=== PATIENT | female | born 1930 | race Caucasian/White ===

== ENCOUNTER 2016-10-12 06:49 | Inpatient (IN) | payer MEDICARE ==
[2016-10-12] VITALS (10 sets, daily range): BP systolic 99–212; BP diastolic 57–83; PULSE 80–121; RESP 15–32; O2SAT 89–96
[~2016-10-12] VITALS: Ht 165.1 cm; Wt 90.1 kg
[~2016-10-12 06:49] MED LIST: ASPI-973 PO; CALC600T12 PO; CHOL400T PO; CYAN500 PO; METF-778 PO; TRHC5025 PO; [UNRECOGNIZED DRUG - OTHER] PO
--- NOTE | 2016-10-12 06:55 | ED.REPORT ---
HPI-Dyspnea / Wheezing Date of Service Oct 12, 2016 ED Provider: Temo Sanchez MD Patient is an 86 year old female without a cardiac history who presents to the ED via EMS complaining of SOB onset yesterday. She claims that she gets episodes of SOB every so often with the last episode being 3 mo ago. She has never been intubated for these symptoms. She had a nebulizer treatment at the onset of her symptoms but symptoms have returned. She denies cough, fever, chest pain, or any other symptoms. She is not on oxygen at home. She is no longer on hormone therapy. Nursing Notes Stated Complaint: SOB Nursing Notes Reviewed: Yes Allergies: Coded Allergies: iodine (Verified Allergy, Unknown, 10/12/16) Scheduled ([pyredestagmo]) 600 MG PO QID Aspirin (Aspirin) 81 Mg Tablet 81 MG PO DAILY Calcium Carbonate (Calcium) 600 Mg Tablet 600 MG PO DAILY Cholecalciferol (Vitamin D3) (Vitamin D3) 400 Unit Tablet 400 UNIT PO DAILY Cyanocobalamin (Vitamin B12) 500 Mcg Tablet 500 MCG PO DAILY Metformin HCl (Metformin HCl ER) 1,000 Mg [id number] 1,000 MG PO DAILY Triamterene/HCTZ 50-25 mg (Triamterene/HCTZ 50-25 mg) 1 Each Capsule 1 CAPSULE PO DAILY General Time Seen by MD: 06:44 Chief Complaint Shortness of breath Hx Obtained From: Patient Arrived By: Ambulance Sudden in Onset?: Yes Onset Occurred: Yesterday Similar Sx Previous: Yes Past Medical History Past Medical History Colon and breast cancer myasthenia gravis Reports: Diabetes mellitus (Diet controlled ), Hypertension Past Surgical History colectomy mastectomy Smoking History Unknown if Ever Smoker Review of Systems Constitutional: Denies: Fever Respiratory: Reports: Shortness of breath, Denies: Non-productive cough Cardiovascular: Denies: Chest pain Complete sys rev & neg: except as marked. Physical Exam Initial Vital Signs Vital Signs (First) Date Time Temp Pulse Resp B/P Pulse Ox O2 Delivery O2 Flow Rate FiO2 10/12/16 06:56 36.7 121 32 118/83 89 Room Air 10/12/16 07:59 2 Initial VS: Reviewed Head / Eyes: Atraumatic, Normocephalic Abdomen / GI: Soft, Non-tender Skin: Warm, Dry Neurologic: Alert, Oriented, Nonfocal Psychiatric: Mood/affect normal, Behavior normal, Normal thought content General/Constitutional: Awake, Alert, Well developed Neck: Full range of motion Resp Distress / Stridor: Positive: Stridor mild speaking in shortened sentences at times and complete sentences at other times mild increased work of breathing coarse breath sounds bilaterally Heart Rate / Rhythm: Positive: Tachycardia Interpretation & Diagnostics Lab Results Interpretation Result Diagram: 10/12/16 0700 10/12/16 0700 Test 10/12/16 07:00 10/12/16 09:02 White Blood Count 10.9th/mm3 (3.8-10.1) Red Blood Count 4.37mil/mm3 (3.90-5.20) Hemoglobin 12.4g/dL (12.0-15.6) Hematocrit 39.2% (35.0-46.0) Mean Corpuscular Volume 89.7fL (81-100) Mean Corpuscular Hemoglobin 28.4pg (27.0-35.0) Mean Corpuscular Hemoglobin Concent 31.6% (32.0-37.0) Red Cell Distribution Width 13.1% (12.3-15.4) Platelet Count 253bil/L (150-400) Neutrophils (%) (Auto) 73.3% (40-74) Lymphocytes (%) (Auto) 17.1% (14-46) Monocytes (%) (Auto) 7.3% (4-12) Eosinophils (%) (Auto) 1.7% (0-5) Basophils (%) (Auto) 0.4% (0-3) Sodium Level 142mEq/L (134-144) Potassium Level 3.9mEq/L (3.5-5.2) Chloride Level 101mEq/L (97-108) Carbon Dioxide Level 23mmol/L (18-29) Blood Urea Nitrogen 15mg/dL (8-27) Creatinine 0.82mg/dL (0.57-1.00) Estimat Glomerular Filtration Rate 95mL/min (>59) Glucose Level 203mg/dL (60-99) Calcium Level 9.2mg/dL (8.5-10.1) Total Bilirubin 0.6mg/dL (0.0-1.2) Aspartate Amino Transf (AST/SGOT) 52U/L (0-50) Alanine Aminotransferase (ALT/SGPT) 38U/L (0-32) Alkaline Phosphatase 65U/L (25-165) Troponin T 0.572ug/L (0.0-0.011) Pro-B-Type Natriuretic Peptide 1986pg/mL (0-738) Total Protein 6.5g/dL (6.4-8.4) Albumin 4.0g/dL (3.4-5.0) Hold Dean Top Tube Received (Received) Activated Partial Thromboplast Time 24.3sec (22.8-33.0) D-Dimer 0.6mg/L (<0.50) ECG Interpretation ECG Interpretation: Sinus tachycardia rate [address], T changes Time: 07:09 Interpreted by: ED physician X-Ray Chest Interpretation Chest Xray Interpretation: IMPRESSION: 1. Mild CHF versus atypical pneumonia. 2. Hiatal hernia. Dictated by: Desmond Ochoa M.D. on 10/12/2016 at 7:44 Approved by: Desmond Ochoa M.D. on 10/12/2016 at 7:44 View: Portable, 1 view Interpretation / Wet Read by: Interpret - Radiologist Re-Eval/Medical Decision Med Decision/Clinical Course 86-year-old female history of colon cancer status post resection, breast cancer status post resection and hormone therapy not on chemotherapy, myasthenia gravis presenting with shortness of breath 1 day and chest pain last night. She reports right-sided chest pain last night. It has resolved. Also with shortness of breath. Oxygen is 89% on arrival. It improved to mid 90s on nebulizers. On arrival she was stridorous and with moderate work of breathing. Her labs were remarkable for troponin of 0.5 with no baseline. Her d-dimer is 6. Sinus tachycardia on EKG. She was given pyridostigmine and steroids and her shortness of breath improved significantly and her stridor and work of breathing normalized. I discussed with cardiology who recommended ruling out PE which we are in the process of doing an recommended heparin drip and trending troponins. Unable to perform CT [place] chest to rule out PE given iodine allergy therefore VQ scan is pending. X-ray showed mild CHF versus atypical pneumonia. I discussed with hospitalist who requested azithromycin. Blood cultures are sent. Patient will be admitted for possible N STEMI, heparin drip, PE workup. Multiple attempts to contact Dr. Morrow were made without success. Re-Evaluation/Progress : Time of Eval: 08:47 )( Re-Eval Resp / Chest: Breath sounds normal Re-Evaluation/Progress Note: Rechecked patient. Discussed plan for admission. Patient understands and agrees with plan. All questions addressed at this time. Patient reports that she may have had some R side chest pain last night. Stridor has resolved. Consultation #1: Referral / Consult Name: Louann Jimenez MD Call Returned at: 07:08 Retail Financial Analyst: Referred to other consult Note: Discussed patient's case with oncologist. Suggests discussing case with neurology. Consultation #2: Referral / Consult Name: Leena Grant MD Consulted With: Cardiology Call Returned at: 08:54 Retail Financial Analyst: Agrees with eval, Agrees with plan Note: Discussed patient's case. Suggests Heparin drip and PE rule out. Consultation #3: Referral / Consult Name: Tiffanie Smith DO Consulted With: Hospitalist Call Returned at: 10:15 Retail Financial Analyst: Will see patient, Agrees with eval, Agrees with plan, Accepts admit Note: Discussed patient's case. Suggests Azithromycin. Accepts admit. Counseled Regarding: Diagnosis, Lab results, Need for admission Discharge & Departure Impression: Primary Impression: NSTEMI (non-ST elevated myocardial infarction) Additional Impression: SOB (shortness of breath) Disposition: ADMITTED TO HOSPITAL Referrals: Arielle Berger (PCP) Crit Care Except Billable Proc Time Spent: 75-104 minutes Services Performed: Patient management by me, Time spent at bedside, Reviewing test results, Reviewing imaging, Discussing patient care, Documentation in record, Time with fam/surrogate Scribe Attestation Portions of this note were transcribed by Paulina Canseco. I, Dr. Sanchez personally performed the history, physical exam and medical decision-making; I reviewed and confirmed the accuracy of the information in the transcribed note. Signed by: Paulina Canseco 10/12/16, 1022 copies to: Arielle Berger Ben M MD Oct 12, 2016 06:55 PAULINA CANSECO Oct 12, 2016 07:11
[2016-10-12] MEDS ORDERED: Albuterol 2.5 mg/3 mL Inhalation Solution NEB ONE (07:15)
[2016-10-12] MEDS ORDERED: 0.9% Sodium Chloride 500 ML IV ONE (07:20)
[2016-10-12 07:44] LABS: BASOPHILS % (AUTO) 0.4 % (0-3); EOSINOPHILS % (AUTO) 1.7 % (0-5); MONOCYTES % (AUTO) 7.3 % (4-12); Mean Corpuscular Hemoglobin 28.4 pg (27.0-35.0); Mean Corpuscular Volume 89.7 fL (81-100); NEUTROPHILS % (AUTO) 73.3 % (40-74); Platelet Count 253 bil/L (150-400)
--- NOTE | 2016-10-12 07:50 | DRSVH ---
PROCEDURE: X-RAY CHEST ONE VIEW, PORTABLE ([id number]) INDICATIONS: dyspnea TECHNIQUE: One view of the chest was acquired. COMPARISON: [facility], CR, XR CHEST 2V AP/PA AND LAT, 09/09/2016, 6:39 PM. FINDINGS: Surgical changes and devices: None. Lungs and pleura: No pleural effusions or pneumothorax. Mild basilar predominant interstitial pulmon claudia opacity. Mediastinum: Moderate hiatal hernia. Mediastinal contours otherwise appear normal. Heart size is no rmal. Bones and chest wall: No suspicious bony lesions. Overlying soft tissues appear unremarkable. IMPRESSION: 1. Mild CHF versus atypical pneumonia. 2. Hiatal hernia. Dictated by: Desmond Ochoa M.D. on 10/12/2016 at 7:44 Approved by: Desmond Ochoa M.D. on 10/12/2016 at 7:44
[2016-10-12 07:59] LABS: TROPONIN T 0.572 ug/L (0.0-0.011)
[2016-10-12] MEDS ORDERED: MethylprednisoLONE Sodium Succinate 62.5 mg/mL 2 mL Inj IVPUSH ONE (08:15)
[2016-10-12] MEDS ORDERED: Heparin 25K Unit/500mL 0.45 NS 25,000 UNIT in IV Premix 1 EACH IV ONE (09:00)
[2016-10-12] MEDS ORDERED: Heparin 5,000 Unit/mL Inj IVPUSH ONE (09:00)
[2016-10-12] MEDS ORDERED: Alum-Mag Hydrox-Simeth 30 mL Suspension PO PRN ×2 (10:25→14:50)
[2016-10-12] MEDS ORDERED: Ondansetron 2 mg/mL 2 mL Inj IVPUSH PRN ×2 (10:25→14:50)
[2016-10-12] MEDS ORDERED: Azithromycin Inj 500 MG in Dextrose 5% 250 ML IV ONE (10:25)
--- NOTE | 2016-10-12 11:01 | DRSVH ---
PROCEDURE: X-RAY CHEST ONE VIEW ([id number]) INDICATIONS: chest pain V/Q Scan pending TECHNIQUE: One lateral view of the chest was acquired. COMPARISON: [facility], CR, XR CHEST 1VW (PORTABLE), 10/12/2016, 7:10. FINDINGS: Surgical changes and devices: None. Lungs and pleura: No pleural effusions or pneumothorax. Mild patchy basilar atelectasis versus pneum onia. Mediastinum: Mediastinal contours appear normal. Heart size is normal. Bones and chest wall: No suspicious bony lesions. Overlying soft tissues appear unremarkable. IMPRESSION: Mild patchy basilar atelectasis versus pneumonia. Dictated by: Desmond Ochoa M.D. on 10/12/2016 at 10:54 Approved by: Desmond Ochoa M.D. on 10/12/2016 at 10:55
--- NOTE | 2016-10-12 13:25 | NUR ---
Admit [facility] rm [id number] from ED Pt admitted on stretcher at 1230, denies pain, daughter present at bedside. Pt oriented to room and facility, all questions answered. Primary RN present in room when pt c/o SOB followed by stridor lasting several minutes. Verbal orders recd for DUONEB. RT called. Symptoms resolved prior to tx. Lots of reassurance provided, pt placed on oxygen via NC for comfort. IV patent-abx infusing from ED. VSS. Will continue to monitor.
[2016-10-12] MEDS ORDERED: Polyethylene Glycol (PEG) 17 Gm Powder PO PRN (14:50)
--- NOTE | 2016-10-12 14:53 | DRSVH ---
PROCEDURE: NM LUNG VQ RADIOPHARMACEUTICAL: 28.9 mCi Tc-99m DTPA aerosol by inhalation and 5.4 mCi Tc-99m MAA intravenously. INDICATIONS: chest pain elevated ddimer TECHNIQUE: Ventilation images were obtained first with Tc-99m DTPA aerosol. Subsequently, perfusion images were acquired after intravenous injection of Tc-99m MAA. Anterior, posterior, SOMMER, MONTSERRATIAN, RPO, LPO, left and right lateral views were obtained. COMPARISON: [facility], CR, XR CHEST 1VW (PORTABLE), 10/12/2016, 7:10. [facility], CR, XR CHEST 1VW, 10/12/2016, 10:40. FINDINGS: Moderate-sized matched defect within the left mid lung anteriorly. Moderate to large matche d defect within the right lower lung and mid lung anteriorly. Small matched defect within the right a nterior lung inferiorly. IMPRESSION: No ventilation/perfusion mismatches to definitively indicate pulmonary embolus. Multiple matched defects are present. Findings correspond to low probability for pulmonary embolus. Dictated by: Desmond Ochoa M.D. on 10/12/2016 at 14:44 Approved by: Desmond Ochoa M.D. on 10/12/2016 at 14:46
[2016-10-12] MEDS: Heparin 5,000 Unit/mL Inj IVPUSH PRN (15:58)
[2016-10-12] MEDS: Heparin 25K Unit/500mL 0.45 NS 25,000 UNIT in IV Premix 1 EACH IV SCH (15:59)
[2016-10-12] MEDS ORDERED: Glucose 40% Oral Gel 15 Gm Tube PO PRN (17:40)
--- NOTE | 2016-10-12 18:48 | PCM.HPMED ---
Subjective Date of Service Oct 12, 2016 Primary Provider: Admitting Physician: Tiffanie Smith DO Primary Care Physician: Arielle Berger Attending Physician: Tiffanie Smith DO Admit Status: From the Emergency Department Chief Complaint: Shortness of breath History of Present Illness: This is a very pleasant 86-year-old female without cardiac history who presents to the [facility] emergency department via EMS complaining of shortness of breath that started yesterday. She claims that she had 3 hospitalizations within the last 6 months due to shortness of breath. Every time to workup was negative to find the cause of her shortness of breath. She states she felt somewhat short of breath last night before she went to bed. She also endorses intermittent right-sided chest pain last night. She woke up this morning with a repeated episode of shortness of breath. She denies cough, fever, chest pain, nausea, vomiting, dysuria, chills, fever, weakness. She is not on oxygen at home. She does not have history of asthma, COPD, and she is not a smoker. As of note, patient has a history of myasthenia gravis, diabetes and hypertension. In the emergency department her temperature was 36.7, pulse 121, respirations 32 , blood pressure 118/83, pulse ox 89 room air. Her white blood count was noted to be 10.9, blood glucose of 203, troponin of 0.572, proBNP 1986, AST 52, ALT 39 , her d-dimer is 6. She was given pyridostigmine and steroids and her shortness of breath improved significantly. Review of Systems: A comprehensive review of systems was conducted with the patient and found to be negative except as above in history of present illness. Allergies Coded Allergies: iodine (Verified Allergy, Unknown, 10/12/16) Home Medications Aspirin Calcium carbonate Vitamin D3 Vitamin B12 Metformin Triamterene/HCTZ PMH Myasthenia gravis Hypertension Diabetes Colon cancer Breast cancer Surgical History Colectomy Mastectomy Family History Mother: diabetes Father: Coronary artery disease Sister: Coronary artery disease, OR Social History Hx Alcohol Use: No Hx Substance Use: No Hx Tobacco Use: No Smoking Status: Unknown if Ever Smoker Living Arrangement: with Family Exam Vital Signs Vital Sign - Last Date Time Temp Pulse Resp B/P Pulse Ox O2 Delivery O2 Flow Rate FiO2 10/12/16 14:54 36.7 93 20 117/77 93 Nasal Cannula 2.00 Exam General: Pleasant, elderly female in no acute distress, alert and oriented 3 HEENT: NCAT, PEERL, anicteric sclera, mucous membranes moist Neck: Supple, no lymphadenopathy, no JVD, no bruit Cardiovascular: Regular rate and rhythm, no murmur appreciated, no rubs or gallops Pulmonary: Mild expiratory wheezing posteriorly bilaterally, no crackles or rhonchi. Reduced respiratory effort with no use of accessory muscles. Abdomen: Bowel tones present. Soft, nontender, nondistended. Extremities: No clubbing, cyanosis, edema, appreciated. Skin: Normal temperature, turgor, and texture; no rash, ulcers, or subcutaneous nodules appreciated. Neuro: Grossly intact Lab and Diagnostics Result Diagram: 10/12/16 0700 10/12/16 0700 Microbiology Blood culture pending X-Rays, CTs and MRIs PROCEDURE: X-RAY CHEST ONE VIEW, PORTABLE ([id number]) IMPRESSION: 1. Mild CHF versus atypical pneumonia. 2. Hiatal hernia. Dictated by: Desmond Ochoa M.D. on 10/12/2016 at 7:44 Approved by: Desmond Ochoa M.D. on 10/12/2016 at 7:44 PROCEDURE: NM LUNG VQ IMPRESSION: No ventilation/perfusion mismatches to definitively indicate pulmonary embolus. Multiple matched defects are present. Findings correspond to low probability for pulmonary embolus. Dictated by: Desmond Ochoa M.D. on 10/12/2016 at 14:44 Approved by: Desmond Ochoa M.D. on 10/12/2016 at 14:46 PROCEDURE: X-RAY CHEST ONE VIEW ([id number]) IMPRESSION: Mild patchy basilar atelectasis versus pneumonia. Dictated by: Desmond Ochoa M.D. on 10/12/2016 at 10:54 Approved by: Desmond Ochoa M.D. on 10/12/2016 at 10:55 12-lead ECG Sinus tachycardia rate 112, PVCs, no ST, T changes Time 7:09, interpreted by ED physician Assessment & Plan Patient is an 86-year-old female with history of myasthenia gravis, hypertension , diabetes, colon and breast cancer, who presented to [facility] emergency department complaining of shortness of breath. Patient admitted for possible NSTEMI, PE rule out. Hospital day #1. Elevated troponin of unknown significance, present on admission, active Patient presented with episode of shortness of breath, and right-sided chest pain last night. No cardiac history. Initial troponin 0.572, proBNP 1986. EKG in the emergency department shows sinus tachycardia with PVCs, no ST, T changes. Dr. Richardson, cardiology has been consulted. Possible NSTEMI -Heparin drip -Serial troponin -Aspirin 81 mg -Nitroglycerin PRN chest pain -O2 supplementation PRN -Lipid panel -ECHO in the morning Myasthenia gravis -60 mg of pyridostigmine and given in the ED patient seemed to respond well -125 mg of Solu-Medrol given in the ED -We will continue to monitor for further myasthenia gravis episodes and treat as necessary Acute respiratory failure, present on admission, resolving Patient bowls oximetry 89% on room air on admission, respirations 82, pulse 121 , patient with increased work of breathing and stridor.Patient's symptoms have much improved upon administration steroids and pyridostigmine in ER. Given patient's D-dimer of 6 there was a concern for possible PE which has been allowed to visit the Q scan. -Continue supplemental O2 PRN -DuoNeb q6h PRN -Continue to monitor Mild leukocytosis, present on admission, active -White blood count of 10.9 on admission -No identifiable source of infection as of yet, chest x-ray is suggestive of an atypical pneumonia -1 dose of azithromycin given in ER -Procalcitonin, UA, Resp.viral PCR-pending -Continue azithromycin at this time -NS IV 80 mls/hr Diabetes mellitus type II, chronic, patient stable -Unclear baseline, hemoglobin A1c pending -Follow blood sugars -Low-dose correctional scale insulin -Continue carbohydrate consistent diet Diet: Heart healthy/diabetic DVT prophylaxis: Currently on heparin drip Disposition: Patient will most likely stay greater than 2 minutes VTE Prophylaxis: Other (Heparin ggt) VTE Mechanical Devices: Venous Foot Pump Resuscitation Status: CPR: Attempt Resuscitation Attending Statement The patient was seen and examined together with Dr. Nolasco on 10/12/16 and I have added additional information to the note above. Eliana Nolasco DO Oct 12, 2016 17:35 Tiffanie Smith DO Oct 13, 2016 15:21
[2016-10-12] MEDS: 0.9% Sodium Chloride 1,000 ML IV SCH (19:47)
[2016-10-12] MEDS: Insulin LISPRO 300 Unit/3 mL Inj SUBQ SCH (20:00)
[2016-10-13] VITALS (17 sets, daily range): BP systolic 106–178; BP diastolic 63–111; PULSE 56–142; RESP 17–30; O2SAT 80–99
[2016-10-13] MEDS: Albuterol-Ipratropium 3 mL Inhalation Solution NEB PRN ×2 (01:29→07:58)
[2016-10-13 07:14] LABS: BASOPHILS % (AUTO) 0.1 % (0-3); EOSINOPHILS % (AUTO) 0.4 % (0-5); MONOCYTES % (AUTO) 8.4 % (4-12); Mean Corpuscular Hemoglobin 28.1 pg (27.0-35.0); Mean Corpuscular Volume 89.8 fL (81-100); NEUTROPHILS % (AUTO) 72.8 % (40-74); Platelet Count 225 bil/L (150-400)
[2016-10-13] MEDS: 0.9% Sodium Chloride 1,000 ML IV SCH ×2 (07:20→08:32)
[2016-10-13] MEDS: Insulin LISPRO 300 Unit/3 mL Inj SUBQ SCH ×4 (08:00→22:41)
[2016-10-13 08:01] LABS: TROPONIN T 0.375 ug/L (0.0-0.011)
[2016-10-13 08:04] LABS: Magnesium 1.8 mg/dL (1.6-2.6)
[2016-10-13] MEDS: Azithromycin Inj 500 MG in Dextrose 5% w/Vial Mate 250 ML IV SCH (08:26)
[2016-10-13] MEDS ORDERED: predniSONE 20 mg Tablet PO ONE ×2 (08:35→20:00)
[2016-10-13] MEDS ORDERED: PYRIDOSTIGMINE BROMIDE 5 MG/ML IV ONE (08:45)
[2016-10-13] MEDS ORDERED: MethylprednisoLONE Sodium Succinate 62.5 mg/mL 2 mL Inj IVPUSH ONE (08:48)
[2016-10-13] MEDS ORDERED: Neostigmine 1 mg/mL 10 mL Inj IV ONE ×2 (09:05→10:40)
--- NOTE | 2016-10-13 09:13 | ABG ---
DateTimeAnalyzed 09:08:00 -_ pH ____7.328 - 7.350 7.450 pCO2 ___46.4__ -mmHg 35.0 45.0 pO2 ___83.2__ -mmHg 69.0 116 HCO3- ___23.7__ -mmol/L 22.0 26.0 ABE ___-1.9__ -mmol/L -2.0 2.0 tHb ___12.4__ -g/dL O2Hb ___94.1__ -% COHb ____0.8__ -% MetHb ____1.1__ -% sO2 ___95.9__ -% FIO2 ___21.0__ -% Drawn By MT - Date/Time Notified____ 09:13:00 -_ Oxygen Device 1 SIMP MASK - Notified By MT - Notified Whom ____Barns - B 745 -mmHg tO2 ___16.4__ -Vol% Mich test N/A -
--- NOTE | 2016-10-13 09:24 | NUR ---
Rapid response @ 0856 Primary RN in pts room @ 0840 as pt c/o difficulty breathing followed by what sounded like stridor/groaning-air hunger. Second episode since 0730 this AM. 1st episode was short, RT was called, Albuterol administered, pt stated to have felt better. Pt was placed on 2L oxygen via NC. called to bedside. STAT medication orders. STAT EKG ordered and ABGs. IV solumedrol administered at 0856 and Neostigmine at 0907. See separate report for VS. Family arrived at 0920, MD updated and answered questions. Pt being transferred to [facility] RM 2024, report called to receiving RN Alena Nunes @ 0925 Addendum: 10/13/16 at 1044 by BUD WILSON RN Pt transferred at 1030. Pt recd by unit charge nurse. finishing technician notified.
--- NOTE | 2016-10-13 10:49 | NUR ---
Arrives to room 2024 at 1035. Initially respirations are easy and unlabored in the low 30's with saturations 96% on 7L OM. Over a period of less than five minutes respirations become labored with coarse upper airway stridor, saturations fall to 86% despite increase in O2 to 15L and then full flush. MD alerted with both Dr Gamble and Dr Smith responding. Neostigmine 1mg administered as ordered with resolution of symptoms. Family at bedside and updated by physicians. Pt resting comfortably, RR 24, O2 saturations 96% on NRB 15L.
[2016-10-13] MEDS: Heparin 25K Unit/500mL 0.45 NS 25,000 UNIT in IV Premix 1 EACH IV SCH (11:16)
[2016-10-13] MEDS: Heparin 5,000 Unit/mL Inj IVPUSH PRN (11:17)
[2016-10-13] MEDS: Privigen 10% 10 Gm/100 mL, 20 Gm/200 mL IV SCH ×2 (11:59)
[2016-10-13] MEDS: Neostigmine 1 mg/mL 10 mL Inj IV SCH ×4 (13:24→22:05)
--- NOTE | 2016-10-13 15:16 | PCM.PNMED ---
Subjective Date of Service Oct 13, 2016 Subjective Patient was seen and examined this morning at bedside. The nurse reported that the patient was having stridor and requested that I go into the patient. Upon presentation to the room the patient was tachypneic and mildly diaphoretic. Oxygen was increased which seemed to help the patient mildly. The patient then started to have stridor and became more anxious and diaphoretic, the patient's blood pressure increased, and her oxygen needs also increased. Respiratory was in the room with myself and the nurse in a rapid response was called. The patient stridor and decompensation seemed to be more related to myasthenia gravis crisis. On 125 mg of Solu-Medrol was given once and 0.5 mg of neostigmine was also given. Pyridostigmine was the drug of choice however since we do not carry that in IV form neostigmine at 0.5 mg was a comparable dose. Stat CBC CMP and troponin were drawn. The patient's family was called and made aware of the situation and they came in immediately. Upon arrival of the patient did look in some distress however the neostigmine was given shortly prior to their arrival and the patient slowly started to recover and responded well to the neostigmine. It was decided that the patient should be transferred down to [facility] for closer monitoring. The patient soon started to have less agonal breathing, her stridor resolved, she was able to speak in full sentences, and the strength in her voice and returned. The patient was then transferred down to [facility] and 0.5 neostigmine every 3 hours was to continue. Shortly after the transfer to [facility] the patient had a 2nd rapid response called. The patient was once again started having stridor and agonal breathing. 1 mg of neostigmine was given and the patient then responded. The 0.5 neostigmine every 3 hours we will continue however it was decided with the myself and Dr. Gamble (who is taking over her care now that she is in on [facility]) that IVIG infusion may be beneficial for the patient at this time. The patient is currently in stable condition. Exam Vital Signs Vital Sign - Last Date Time Temp Pulse Resp B/P Pulse Ox O2 Delivery O2 Flow Rate FiO2 10/13/16 10:21 103 10/13/16 09:59 28 155/81 92 OxyMask 7.00 10/13/16 04:50 36.6 Intake and Output 10/12/16 10/12/16 10/13/16 Cumulative From/Thru 15:00 23:00 07:00 10/12/16 06:56 - 10/13/16 05:02 Intake Total 750 ml 1531 ml 2281 ml Output Total 300 ml 300 ml Balance 750 ml 1231 ml 1981 ml Intake Oral 1136 ml 1136 ml IV Total 750 ml 395 ml 1145 ml Output Urine Total 300 ml 300 ml # Voids 1 1 # Bowel Movements 1 1 Exam Physical Exam: GEN: Patient was awake, diaphoretic, responding appropriately to questions, in acute distress HEENT: PERRLA, EOMI, Neck soft supple, trachea midline, nomocephalic/atraumatic CV: +S1/S2, RRR, systolic murmur auscultated Respiratory: Positive stridor, no wheezes, rales, rhonchi GI: +bowel sounds x4, soft, compressible, non TTP EXT: no c/c/e Neuro: CN II-XII grossly intact Psych: mood and affect were appropriate IVs and Medications Medications Reviewed: Medications were reviewed in detail Lab and Diagnostics Result Diagram: 10/13/16 0620 10/13/16 0620 Microbiology Blood culture pending X-Rays, CTs and MRIs PROCEDURE: X-RAY CHEST ONE VIEW, PORTABLE ([id number]) IMPRESSION: 1. Mild CHF versus atypical pneumonia. 2. Hiatal hernia. Dictated by: Desmond Ochoa M.D. on 10/12/2016 at 7:44 Approved by: Desmond Ochoa M.D. on 10/12/2016 at 7:44 PROCEDURE: NM LUNG VQ IMPRESSION: No ventilation/perfusion mismatches to definitively indicate pulmonary embolus. Multiple matched defects are present. Findings correspond to low probability for pulmonary embolus. Dictated by: Desmond Ochoa M.D. on 10/12/2016 at 14:44 Approved by: Desmond Ochoa M.D. on 10/12/2016 at 14:46 PROCEDURE: X-RAY CHEST ONE VIEW ([id number]) IMPRESSION: Mild patchy basilar atelectasis versus pneumonia. Dictated by: Desmond Ocoha M.D. on 10/12/2016 at 10:54 Approved by: Desmond Ochoa M.D. on 10/12/2016 at 10:55 12-lead ECG Sinus tachycardia rate 112, PVCs, no ST, T changes Time 7:09, interpreted by ED physician Assessment & Plan Patient is an 86-year-old female with history of myasthenia gravis, hypertension , diabetes, colon and breast cancer, who presented to [facility] emergency department complaining of shortness of breath. Patient admitted for possible NSTEMI, PE rule out. Hospital day #1. Myasthenia gravis -Neostigmine 0.5 mg every 3 hours -IVIG infusion -Oxygen for comfort -Continue to monitor Elevated troponin of unknown significance, present on admission, active Patient presented with episode of shortness of breath, and right-sided chest pain. No cardiac history. Initial troponin 0.572, proBNP 1985. EKG in the emergency department shows sinus tachycardia with PVCs, no ST, T changes. Dr. Richardson, cardiology has been consulted. Possible NSTEMI -Heparin drip -Serial troponin 0.373-->0.332-->0.375 during rapid response the troponin increased to 0.554 -Aspirin 81 mg -Nitroglycerin PRN chest pain -O2 supplementation PRN -Lipid panel -ECHO results pending -Cardiology was planning to take the patient to the [facility] tomorrow and they are going to give her a dose of prednisone this evening as she does have an allergy to iodine however they may hold off as the patient has been having myasthenia crises. Acute respiratory failure, present on admission, -Continue supplemental O2 PRN -DuoNeb q6h PRN -VQ scan low probability for PE -Continue to monitor Mild leukocytosis, present on admission, active -White blood count of 10.9 on admission-->10.3 today -No identifiable source of infection as of yet, chest x-ray is suggestive of an atypical pneumonia -1 dose of azithromycin given in ER -Procalcitonin, 0.08 (WNL) - UA pending -Resp.viral PCR pending -Continue azithromycin at this time -NS IV 80 mls/hr Diabetes mellitus type II, chronic, patient stable -Unclear baseline, hemoglobin A1c pending -Follow blood sugars -Low-dose correctional scale insulin -Continue carbohydrate consistent diet Disposition: Patient has a history of myasthenia gravis and this seems to be the cause of the patient's shortness of breath. The patient has been in and out of the hospital for the last 6 months secondary to stridor and shortness of breath. The patient is being treated with neostigmine every 3 hours and IVIG infusions. Patient may need oral medication in order to maintain stability. Patient is also being worked up for any other viruses that may be causing the triggering of the myasthenia gravis. Cardiology has been consulted and would like to do cardiac stress test however at this time as the patient is unstable and they may defer doing the stress test tomorrow. For the patient to do the stress test the patient will need to have steroids that evening before and she does have a true allergy. At this time cardiology would prefer to wait until the patient is stable and able to tolerate this particular procedure. The patient has been transferred down to the [facility] and will be managed by the team at this time. VTE Prophylaxis: Other (Heparin ggt) VTE Mechanical Devices: Venous Foot Pump Resuscitation Status: CPR: Attempt Resuscitation Tiffanie Smith DO Oct 13, 2016 14:42
--- NOTE | 2016-10-13 15:21 | PCM.PNMED ---
Subjective Date of Service Oct 13, 2016 Subjective Septum the patient transfer. She is more dyspneic today. She has a history of myasthenia gravis. She is having upper airway stridor which appeared to improve with neostigmine. No fevers or chills. She also has a mild elevation of troponin as well as possible pulmonary edema on chest x-ray. A cardiac echo is pending. She denies chest pain. She was given 1 dose of Solu-Medrol 125 mg IV this morning. She has had 1 dose of neostigmine was some improvement of symptoms. Exam Vital Signs Vital Sign - Last Date Time Temp Pulse Resp B/P Pulse Ox O2 Delivery O2 Flow Rate FiO2 10/13/16 10:21 103 10/13/16 09:59 28 155/81 92 OxyMask 7.00 10/13/16 04:50 36.6 Intake and Output 10/12/16 10/12/16 10/13/16 Cumulative From/Thru 14:59 22:59 06:59 10/12/16 06:56 - 10/13/16 05:02 Intake Total 750 ml 1531 ml 2281 ml Output Total 300 ml 300 ml Balance 750 ml 1231 ml 1981 ml Intake Oral 1136 ml 1136 ml IV Total 750 ml 395 ml 1145 ml Output Urine Total 300 ml 300 ml # Voids 1 1 # Bowel Movements 1 1 Exam She is somewhat uncomfortable can speak. She is oriented. Lungs are notable for some upper airway stridor. Heart is regular without murmur. Abdomen is soft nondistended. Extremities are free of edema. IVs and Medications Medications Reviewed: Medications were reviewed in detail Lab and Diagnostics Result Diagram: 10/13/16 0620 10/13/16 0620 Microbiology Blood culture pending X-Rays, CTs and MRIs PROCEDURE: X-RAY CHEST ONE VIEW, PORTABLE ([id number]) IMPRESSION: 1. Mild CHF versus atypical pneumonia. 2. Hiatal hernia. Dictated by: Desmond Ochoa M.D. on 10/12/2016 at 7:44 Approved by: Desmond cOhoa M.D. on 10/12/2016 at 7:44 PROCEDURE: NM LUNG VQ IMPRESSION: No ventilation/perfusion mismatches to definitively indicate pulmonary embolus. Multiple matched defects are present. Findings correspond to low probability for pulmonary embolus. Dictated by: Desmond Ochoa M.D. on 10/12/2016 at 14:44 Approved by: Desmond Ochoa M.D. on 10/12/2016 at 14:46 PROCEDURE: X-RAY CHEST ONE VIEW ([id number]) IMPRESSION: Mild patchy basilar atelectasis versus pneumonia. Dictated by: Desmond Ochoa M.D. on 10/12/2016 at 10:54 Approved by: Desmond Ochoa M.D. on 10/12/2016 at 10:55 12-lead ECG Sinus tachycardia rate 112, PVCs, no ST, T changes Time 7:09, interpreted by ED physician Assessment & Plan Patient is an 86-year-old female with history of myasthenia gravis, hypertension , diabetes, colon and breast cancer, who presented to [facility] emergency department complaining of shortness of breath. Patient admitted for possible NSTEMI, PE rule out. Hospital day #1. 1. Recurrent stridor with acute hypoxic respiratory failure. This is worse this morning. This could be a manifestation of NG. The plan is to use neostigmine when necessary, continue same Medrol and 25 mg every 8 hours, and start IVIG and recommended dose of 400 mg/kg per day for 5 days. We will also repeat a chest x-ray to rule out pulmonary edema. 2. Elevated troponin of unknown significance, present on admission, active. No complaints of chest pain. The plan is to continue beta blockade, aspirin, heparin drip as well as obtaining an echo. 3. Diabetes mellitus type II, no change to current medical therapy. Level of care is discussed with patient and her immediate family members attempted transfer. She is DO NOT INTUBATE. She would want CPR for a cardiac arrest scenario as well as drugs. Bag valve mask acceptable during this type of event. VTE Prophylaxis: Other (Heparin ggt) VTE Mechanical Devices: Venous Foot Pump Resuscitation Status: CPR: Attempt Resuscitation Time spent 35 minutes Mich Gamble MD Oct 13, 2016 15:21
--- NOTE | 2016-10-13 15:38 | DRSVH ---
[facility] [address] [place] [address] Echocardiogram Report Name: SHAISTA CRUZ MStudy Date: 10/13/2016 Height: 65 in Hospital Exam Location: [facility] Weight: 192 lb Gender: Female BSA: 1.9 m2 : 1930 Age: 86 yrs BP: 117/74 m mHg Reason For Study: SOB, ELEVATED TROPONIN History: HTN,HIATAL HERNIA Ordering Physician: HOSPITALIST [facility] Performed By: Kaley Flor Referring Physician: BJ Berger Interpretation Summary 1. Normal left ventricular size and wall thickness with wall motion abnormalities as noted below. Estimated global EF is 35% 2. Normal right ventricular size and systolic function. The estimated RVSP is 39 mm Hg 3. No evidence for significant valvular pathology These findings may be consistent with a Takotsubo (stress) cardiomyopathy Procedure: A two-dimensional transthoracic echocardiogram with color flow and Doppler was performed. There is no prior echocardiogram noted for this patient. The study quality was technically adequate. The patient was in normal sinus rhythm during the exam. Left Ventricle: There is normal left ventricular wall thickness. The left ventricle is normal in size. No thrombus is appreciated in the sampled segments. Left ventricular ejection fraction is estimated to be 35%. There is hypokinesis of the distal/apical segments with compensatory hyperkinesis of the basal segments. Spectral Doppler of the mitral valve is reversed, with an E/A wave ratio < 0.8. Right Ventricle: The right ventricle is normal in size and function. Possible hypokinesis of the apical segment. Atria: The left atrium is mildly dilated. Right atrial size is normal. There is no Doppler evidence for an interatrial shunt. Mitral Valve: The mitral valve leaflets are mildly calcified. There is mild mitral annular calcification. There is trace mitral regurgitation. Aortic Valve: The aortic valve is not well visualized. There is no aortic valve stenosis. Doppler findings do not suggest aortic stenosis. No aortic regurgitation is present. Tricuspid Valve: The tricuspid valve is not well visualized, but is grossly normal. There is a trace or physiologic amount of tricuspid regurgitation. The right ventricular systolic pressure is estimated at least 39 mmHg assuming a right atrial pressure of 15 mm Hg. Pulmonic Valve: The pulmonic valve is not well visualized. There is trace pulmonic regurgitation. Great Vessels: The aortic root is normal size. The ascending aorta is normal in size. The IVC is dilated (diameter is greater than 2.1 cm) and it collapses less than 50% with a sniff. This suggests a high right atrial pressure of 15 mm Hg. Pericardium/ Pleura There is no pericardial effusion. MMode/2D Measurements & Calculations LVIDd: 4.7 cm LA A2 area RA long axis: 4.6 cm LVOT diam: 1.9 cm LVIDs: 3.1 cm Ao root diam: 3.3 cm FS: 34.0 % RA area: 14.5 cm Aortic Jxn: 2.3 cm IVSd: 0.94 cm LA A4 area RA vol: 38.7 ml asc Aorta Diam: 3.2 cm LVPWd RA : 19.9 ml/m2 : 0.8cm LA length (vol) LA vol: 68.2 ml LA vol index IVC diam: 2.6 cm LVAd ap4 LVAd ap2 LV boucher. diameter/BSA LV sys. diameter/BSA : 18.6 2m : 23.1 cm (cm/m^2): 2.4 (cm/m^2): 1.6 LVLd ap2: 6.7 cm EDV(MOD-sp2) EDV(sp2-el) : 67.7 ml RVD1 (basal) TAPSE: 1.8 cm Doppler Measurements & Calculations Ao V2 max MV E max paul MV E/A: 0.63 TR max paul : 111.8 cm/sec : 67.1 cm/sec Med Peak E' Paul : 242.8 cm/sec Ao max PG MV A max paul TR max PG : 5.0 mmHg : 107.2 cm/sec E/E' med: 23.6 : 23.6 mmHg Ao mean PG MV P1/2t: 41.5 msec Lat Peak E' Paul PA V2 max : 80.3 cm/sec LVOT Max Paul E/E' lat: 5.7 PA mean PG : 84.2 cm/sec E/e' average: 14.7 LIZETH(I,D): 1.8 cm Pulm A Revs Dur PA Accel Time sev ratio : 0.13 sec MV A dur: 0.12 sec MV dec time MV P1/2t max paul Ao V2 mean LV V1 max PG : 0.14 sec : 74.6 cm/sec MVA(P1/2t): 5.3 cm2 Ao V2 VTI: 21.1 cm LV V1 VTI LIZETH(V,D): 2.1 cm2 : 13.9 cm PA V2 mean LIZETH indexed to BSA Pulm A Revs Dur - MV : 53.5 cm/sec (cm^2/m^2): 0.95 A Dur: -0.04 msec Reading Physician:03:37 PM
--- NOTE | 2016-10-13 15:41 | CONS ---
[address] [address] CONSULTATION REPORT PATIENT: SHAISTA CRUZ : 1930 MR#: [id number] ADMIT: 10/12/2016 JOB ID: [id number] DATE OF SERVICE: 10/13/2016 CHIEF COMPLAINT: I was asked by the hospital team to consult on this patient given elevated troponin. HISTORY OF PRESENT ILLNESS: The patient is an 86-year-old woman with past medical history significant for myasthenia gravis. She says she has been worked up in the past at [facility] for increased shortness of breath and all workup has been unrevealing. She has presented to the ED with increased shortness of breath. Troponin was elevated. EKG shows sinus tachycardia and imaging showed mild CHF versus atypical pneumonia and hiatal hernia. However, her BNP was not significantly elevated so she had a V/Q scan to rule out PE. This also occurred in the setting of a mildly elevated D-dimer. She denies any chest pain, chest pressure, orthopnea, PND, increased lower extremity edema, palpitations, presyncope or syncope. Although I cannot find it in the ER records I am told by the hospital team that she received a dose of neostigmine which helped with her breathing. She had increased work of breathing with associated stridor last night and was given additional doses of neostigmine which helped her breathing, although she is still quite stridorous today when I see her today. She has a contrast allergy which by description is a true CONTRAST ALLERGY when she had a CT angio performed and she was given doses of steroids this morning, although I am not sure if this was in anticipation of using contrast or if this was to potentially help her lungs. Today, she is doing a little better although she is quite stridorous. She is on oxygen. She denies chest pain, chest pressure. She says she is able to lay flat without problems. PMH: myasthenia gravis Famhx: no early CAD Social: no tobacco or significant alcohol ROS: constitutional: no fevers, chills. GI: no ulcers or blood in stool. : no dysuria. Cardiac: per HPI - no orthopnea, PND. Pulmonary: increased dyspnea. Musculoskeletal_- no joint swelling: Endo: no heat or cold intolerarance. Derm: no rashes. Optho: no vision changes. Heme: no easy bruising or bleeding. Psych: no acute issues. Neuro: No headaches. All other ROS on a 12 point ROS negative PHYSICAL EXAMINATION: Blood pressure is 155/81, heart rate is 100, sats are 92% on 7 L. General: Appearing short of breath and only able to complete short sentences. Oxygen via face mask is on. Head and neck exam: Normocephalic, atraumatic. Neck: Cannot appreciate obvious JV distention. Vascular: No obvious carotid bruits appreciated, however, very difficult to discern given stridorous sounds. Heart exam: Tachycardic. I can barely hear heart sounds because of the stridor. Lungs stridor noted bilaterally and it is also audible. Abdomen: Soft, nontender. Back: No CVA tenderness to palpation. Extremities: Warm, no significant edema, 1+ DP pulses appreciated. Skin without breakdown appreciated. Neuro: She is alert and interactive. Oropharynx: Mucous membranes moist. No erythema. Ophtho: Vision is grossly intact. Neuro: Gait not tested. Psych: Appropriate mood and affect. CURRENT MEDICATIONS: Include azithromycin, heparin, insulin, prednisone. She was also given methylprednisolone this morning. She was given a number of doses of neostigmine. Allergies: contrast LABORATORIES: Chemistry today showed a sodium 141, potassium 2.7, chloride and bicarb 103 and 23 respectively. BUN and creatinine 17 and 0.88. Troponin was at 0.572 initially. These have trended downward. There were some elevated LFTs which also have trended downward. Repeat proBNP has not been obtained. Triglycerides 138, cholesterol 163, LDL 131.4. The HDL was calculated as very low. Procalcitonin is not elevated. IMPRESSION: The patient came in with an acute exacerbation of breathing, shortness of breath. She is stridorous. She had elevated troponin. A V/Q scan was low probability for pulmonary embolism. She has no chest pain. No chest pressure. The troponins have trended downward although they are still elevated. She has responded best to neostigmine in terms of her breathing. PLANS AND RECOMMENDATION: 1. I think getting an echocardiogram is very helpful to see if this is a possible stress cardiomyopathy associated with this exacerbation of her myasthenia gravis. 2. I think that we would continue to have the hospital team manage her breathing issues which seem to respond to neostigmine. 3. Should we think that there is a coronary contributor to her problem we will plan ahead and give her steroids today and tomorrow morning to treat a potential contrast allergy in her. However, at the current state she seems in great respiratory distress, very stridorous. I do not think she would be able to go to the cath laboratory at this time for multiple reasons especially in light of the fact she has a CONTRAST ALLERGY. We will look at the echocardiogram and decide how to proceed from that point on. I spent one hour reviewing this patient's chart, speaking with her and her family and examining her. I also discussed my findings/recommendations with the hospitalist team EDIS
--- NOTE | 2016-10-13 15:44 | DRSVH ---
PROCEDURE: X-RAY CHEST ONE VIEW, PORTABLE ([id number]) INDICATIONS: 86-year-old female with dyspnea. TECHNIQUE: One view of the chest was acquired. COMPARISON: [facility], CT, CT CHEST W CONTRAST, 03/08/2016, 10:34 AM. [facility], CR, XR CHEST 1VW, 10/12/2016, 10:40. [facility], CR, XR CHEST 1VW (PORTABLE), 11/2016, 7:10. [facility], CR, XR CHEST 2V AP/PA AND LAT, 09/09/2016, 6:39 PM. FINDINGS: Surgical changes and devices: None. Lungs and pleura: No pleural effusions or pneumothorax. Lungs are clear. Mediastinum: Large retrocardiac hiatal hernia is again noted. Heart size is normal giving AP techni que. Bones and chest wall: No suspicious bony lesions. Overlying soft tissues appear unremarkable. IMPRESSION: No acute cardiopulmonary disease. Sizable retrocardiac hiatal hernia as before. Dictated by: Pb Gooden M.D. on 10/13/2016 at 15:41 Approved by: Pb Gooden M.D. on 10/13/2016 at 15:42
--- NOTE | 2016-10-13 15:46 | NUR ---
Social Work Note: Screen Note Data & Assessment: EMR reviewed. Patient is a 86 year old female admitted on 10/12/16 to [facility] and transferred to [facility] on 10/13/16for N Stemi. Pt has [facility] for insurance and sees BJ Nguyen for primary care. Per EMR patient lives with family. SW will continue to follow patient for discharge planning. Plan: SW will follow patient for discharge planning needs and complete initial assessment. Mayra Carney LMSW, ACRyan
[2016-10-13] MEDS: MethylprednisoLONE Sodium Succinate 40 mg/mL Inj IVPUSH SCH (16:21)
[2016-10-13] MEDS ORDERED: IVIG per Pharmacy (Initial) XX SCH (17:00)
--- NOTE | 2016-10-13 19:07 | NUR ---
Resp/HNV Patient arrived to 2024 from [facility] via bed, a/o x 3. Patient went into resp distress within five minutes of arriving to floor. Oxymask @ 15 L nc @ 6 L O 2 sat 80%. [facility] called and MD, RTC and extra staff responded. Pateint changed to NRB and emergent meds given per MD orders by charge manager. Patient resting more comfortably throughout the shift O 2 oxymask @ 8 L throughout the rest of the shift, sats 91-96%. Tele SR-ST, VSS. Patient denies pain or nausea. npo with ice chips only this shift. Pateint HNV since transfer to floor and denies urge to void. Will inform noc RN for need for bladder scan by 1999.
[2016-10-14] VITALS (27 sets, daily range): BP systolic 96–131; BP diastolic 52–108; PULSE 62–96; RESP 14–25; O2SAT 97–100
[2016-10-14] MEDS: 0.9% Sodium Chloride 1,000 ML IV SCH ×3 (00:55→16:15)
[2016-10-14] MEDS: MethylprednisoLONE Sodium Succinate 40 mg/mL Inj IVPUSH SCH ×3 (00:55→16:15)
[2016-10-14] MEDS: Neostigmine 1 mg/mL 10 mL Inj IV SCH ×8 (00:59→22:15)
--- NOTE | 2016-10-14 01:08 | NUR ---
Transfer of Care On first assessment pt sats mid to high 90s on 8L oxymask, denies chest pain tele SR 80s-90s w/ PVCs, rate down to 60s-70s as pt fell asleep. PTT therapeutic and heparin gtt continues at 1150units/hr. Transfer of care to Jo AMBROSIO, report given at around 2330.
--- NOTE | 2016-10-14 03:23 | NUR ---
Status: SpO2: 95-99% on 8L oxymask. Denies SOB at rest at this time. Respirations appear unlabored. No overt signs or symptoms of distress. Telemetry sinus rhythm with PVC's. VSS. Heparin gtt infusing at 1150 units/hr at this time, will titrate per protocol.
[2016-10-14 04:06] LABS: Mean Corpuscular Hemoglobin 28.2 pg (27.0-35.0); Mean Corpuscular Volume 89.1 fL (81-100)
[2016-10-14 04:40] LABS: TROPONIN T 0.291 ug/L (0.0-0.011)
--- NOTE | 2016-10-14 06:28 | NUR ---
Respiratory distress: At 0600, pt. complaining of sudden respiratory distress. Pt. having obvious difficulty breathing and grunting to take breaths. Dr. Kinsey at bedside during event. SpO2: 97% on 8L oxymask. Scheduled 0700 dose of Neostigmine administered at 0605 per physician order. Pt. gradually responded to medication and by 0615, pt. denies SOB and describes "feeling better". A.M. dose of solumedrol administered early as well. Pt. sitting upright in bed. Will continue to monitor.
[2016-10-14] MEDS: Albuterol-Ipratropium 3 mL Inhalation Solution NEB PRN (07:26)
--- NOTE | 2016-10-14 07:43 | NUR ---
called by RN to assess pt for shortness of breath and increased work of breathing. upon arrival pt was in moderate respiratory distress and complaining she was unable to "get enough air". she was given a nebulizer and placed on bipap per md orders. she is currently resting comfortably on bipap without respiratory distress. will continue to support and monitor.
[2016-10-14] MEDS: Azithromycin Inj 500 MG in Dextrose 5% w/Vial Mate 250 ML IV SCH (08:18)
[2016-10-14] MEDS: Heparin 25K Unit/500mL 0.45 NS 25,000 UNIT in IV Premix 1 EACH IV SCH (08:19)
[2016-10-14] MEDS: Insulin LISPRO 300 Unit/3 mL Inj SUBQ SCH ×4 (08:26→22:22)
[2016-10-14] MEDS ORDERED: 0.9% Sodium Chloride 250 ML ONE (11:29)
[2016-10-14] MEDS: Privigen 10% 10 Gm/100 mL, 20 Gm/200 mL IV SCH ×2 (12:30)
--- NOTE | 2016-10-14 15:38 | PCM.PNMED ---
Subjective Date of Service Oct 14, 2016 Subjective Patient awake and conversing through BiPAP mask. Patient states she understands where she has and demonstrates understanding, denies any pain, claims to be short of breath that has been helped with the BiPAP. Patient does not seem to be progressively getting better, and in-fact getting worse. Exam Vital Signs Vital Sign - Last Date Time Temp Pulse Resp B/P Pulse Ox O2 Delivery O2 Flow Rate FiO2 10/14/16 15:05 36.9 71 17 111/59 100 BiPAP 40 10/14/16 07:27 8.00 Intake and Output 10/13/16 10/13/16 10/14/16 Cumulative From/Thru 15:00 23:00 07:00 10/12/16 06:56 - 10/14/16 04:49 Intake Total 200 ml 1415 ml 150 ml 4046 ml Output Total 200 ml 0 ml 275 ml 775 ml Balance 0 ml 1415 ml -125 ml 3271 ml Intake Oral 200 ml 60 ml 150 ml 1546 ml IV Total 1355 ml 2500 ml Output Urine Total 200 ml 0 ml 275 ml 775 ml # Voids 1 2 4 # Bowel Movements 0 0 1 Exam GenL AOx3; conversive Cardio: RRR Resp: CTA, on bpap, Abd:soft, non-tender, +bs, non-distended Ext: No edema neuro: Alert and oriented, pt moves all extremities psych: appropriate mood/affect skin: no rashes IVs and Medications Medications Reviewed: Medications were reviewed in detail Lab and Diagnostics Result Diagram: 10/14/16 0400 10/14/16 0400 Microbiology Blood culture pending X-Rays, CTs and MRIs PROCEDURE: X-RAY CHEST ONE VIEW, PORTABLE ([id number]) IMPRESSION: 1. Mild CHF versus atypical pneumonia. 2. Hiatal hernia. Dictated by: Desmond Ochoa M.D. on 10/12/2016 at 7:44 Approved by: Desmond Ochoa M.D. on 10/12/2016 at 7:44 PROCEDURE: NM LUNG VQ IMPRESSION: No ventilation/perfusion mismatches to definitively indicate pulmonary embolus. Multiple matched defects are present. Findings correspond to low probability for pulmonary embolus. Dictated by: Desmond Ochoa M.D. on 10/12/2016 at 14:44 Approved by: Desmond Ochoa M.D. on 10/12/2016 at 14:46 PROCEDURE: X-RAY CHEST ONE VIEW ([id number]) IMPRESSION: Mild patchy basilar atelectasis versus pneumonia. Dictated by: Desmond Ochoa M.D. on 10/12/2016 at 10:54 Approved by: Desmond Ochoa M.D. on 10/12/2016 at 10:55 12-lead ECG Sinus tachycardia rate 112, PVCs, no ST, T changes Time 7:09, interpreted by ED physician Assessment & Plan Patient is an 86-year-old female with history of myasthenia gravis, hypertension , diabetes, colon and breast cancer, who presented to [facility] emergency department complaining of shortness of breath. 1. Acute hypoxic respiratory failure with intermittent stridor second to myasthenia gravis: poa; ongoing - Improved this am, concern that this could be a manifestation of Myasthenia. - Continue neostigmine 0.5mg Q3 IV - Continue same Medrol and 25 mg every 8 hours - Start IVIG and recommended dose of 400 mg/kg per day for 5 days. - We will also repeat a chest x-ray tomorrow to rule out pulmonary edema. - Plan on discussing with neurology - Inspiratory/Expiratory pressures and Vital capacity ordered - Pt does not want to be intubated 2. Elevated troponin of unknown significance, present on admission, active. - No complaints of chest pain and patient has been evaluated by Dr. Grant. Pt would not want intervention. Please see Dr. Grant's note. - The plan is to continue beta blockade, aspirin, heparin drip as well as obtaining an echo. 3. Diabetes mellitus type II, no change to current medical therapy. Dispo: Pt is a DNR/I and family and patient wish to abide by this. Discussion on what to do if IVIG does not work. Family states that comfort care would likely be preferred vs transfer for plasmapheresis. VTE Prophylaxis: Other (Heparin ggt) VTE Mechanical Devices: Intermittant Pneumatic CD Resuscitation Status: CPR: Attempt Resuscitation Time spent 35 minutes Attending Statement Patient was seen and examined with house staff. Agree with all attached documentation. Damir Vidales DO Oct 14, 2016 15:38 Mich Gamble MD Oct 15, 2016 07:16
--- NOTE | 2016-10-14 16:02 | NUR ---
spiritual care: pt request introductory visit. pt expressed how difficult it is for her to talk through breathing assistance. brother and son, briseyda in room. they offered basic personal history for pt, no specific spiritual care needs identified, will continue to follow.
--- NOTE | 2016-10-14 18:42 | NUR ---
Respiratory Pt. is on BiPAP, SpO2 maintains at high 90s. IVIG and Neostigmine were given as ordered. No side effects/reactions noted. Vital signs had been stable. No respiratory distress at rest. Pt. slept at intervals. PTT in therapeutic goal. Next PTT will be tomorrow am per shift report.
[2016-10-15] VITALS (12 sets, daily range): BP systolic 105–159; BP diastolic 53–95; PULSE 68–95; RESP 16–32; O2SAT 79–100
[2016-10-15] MEDS: MethylprednisoLONE Sodium Succinate 40 mg/mL Inj IVPUSH SCH ×2 (01:06→09:57)
[2016-10-15] MEDS: Neostigmine 1 mg/mL 10 mL Inj IV SCH ×8 (01:07→22:25)
[2016-10-15] MEDS: Albuterol-Ipratropium 3 mL Inhalation Solution NEB PRN (03:06)
[2016-10-15 03:56] LABS: BASOPHILS % (AUTO) 0 % (0-3); EOSINOPHILS % (AUTO) 0 % (0-5); MONOCYTES % (AUTO) 4.1 % (4-12); Mean Corpuscular Volume 89.7 fL (81-100); NEUTROPHILS % (AUTO) 88.6 % (40-74); Platelet Count 244 bil/L (150-400)
[2016-10-15 04:18] LABS: Phosphorus 3.8 mg/dL (2.5-4.9)
--- NOTE | 2016-10-15 04:21 | NUR ---
P: resp distress I: bipap, repositioning, neostigmine IVP, CXR, neb tx E: Alert, oriented. Uses call light. Denies dyspnea, pain, N/V start of shift. Bipap at 30%. Pt had two episodes w/ c/o increase dyspnea. Increase WOB noted. Repositioning and coughing effective for the first two resp events. Third resp event increase dyspnea, HR, BP, RR in the mid 30s. Accessory muscles. Reposition pt bolt upright, neb tx, early AM CXR. Dr. Kinsey notified and came to floor. Per Dr. Kinsey neostigmine IVP given early and IVF on hold. Pt currently sleeping again. Incontinent of urine. Tele SR w/ inverted T wave. Cardiac heparin drip.
[2016-10-15] MEDS: Heparin 25K Unit/500mL 0.45 NS 25,000 UNIT in IV Premix 1 EACH IV SCH (07:50)
--- NOTE | 2016-10-15 08:02 | DRSVH ---
PROCEDURE: X-RAY CHEST ONE VIEW, PORTABLE ([id number]) INDICATIONS: SHORT OF BREATH TECHNIQUE: One view of the chest was acquired. COMPARISON: [facility], CR, XR CHEST 1VW (PORTABLE), 10/13/2016, 15:15. FINDINGS: Surgical changes and devices: None. Lungs and pleura: No pleural effusions or pneumothorax. Bibasilar airspace opacities present and sm all hiatal hernia. Mediastinum: Mediastinal contours appear normal. Heart size is normal. Bones and chest wall: No suspicious bony lesions. Overlying soft tissues appear unremarkable. IMPRESSION: Bibasilar atelectasis versus aspiration or pneumonia. Correlate clinically. Dictated by: Han Sims RRA Interpreted: Mary Viramontes MD on 10/15/2016 at 8:00 Transcribed by: GIANA on 10/15/2016 at 8:01 Approved by: Mary Viramontes M.D. on 10/17/2016 at 16:05
[2016-10-15] MEDS ORDERED: MethylprednisoLONE Sodium Succinate 62.5 mg/mL 2 mL Inj IVPUSH SCH (08:56)
[2016-10-15] MEDS: Insulin LISPRO 300 Unit/3 mL Inj SUBQ SCH (09:08)
[2016-10-15] MEDS: Azithromycin Inj 500 MG in Dextrose 5% w/Vial Mate 250 ML IV SCH (09:12)
[2016-10-15] MEDS: 0.9% Sodium Chloride 1,000 ML IV SCH ×2 (09:20→19:54)
[2016-10-15] MEDS ORDERED: Neostigmine 1 mg/mL 5 mL Inj IV ONE (10:30)
[2016-10-15] MEDS ORDERED: Neostigmine 1 mg/mL 10 mL Inj IV ONE (10:40)
[2016-10-15] MEDS ORDERED: fentaNYL-PF 50 mCg/mL 2 mL Inj IVPUSH ONE ×3 (11:00→11:15)
[2016-10-15] MEDS ORDERED: fentaNYL-PF 50 mCg/mL 2 mL Inj ONE (11:03)
--- NOTE | 2016-10-15 11:15 | NUR ---
NUTRITION ASSESSMENT: ASSESS: Pt is an 86yo F admitted for n. stemi. She has been requiring BIPAP secondary to myasthenia gravis. Due to this she has not been able to be tolerating PO well x3 days. Today she was able to be off BIPAP and tolerated 100% of breakfast. PMHX: myasthenia gravis, HTN, DM, colon ca, breast ca LABS: Reviewed. Glu 246, AST 79, ALT 123, Alb 3.4 MEDS: Reviewed. Solu-medrol, insulin GI: BMx1 3/4 SKIN: Juan F 11 CURRENT WTS: 90.1kg, BMI 33.1kg/m2, admit wt: 86.5kg, IBW 56.8kg DIET: Heart Healthy, Diabetic, PO 0-100% EST. NEEDS: BMI Kcals: 1800-1980kcal/day (20-22kcal/kg) Pro: 65-85g/day (1.2-1.5g/kg IBW) NUTRITION DIAGNOSIS: 1.) Inadequate oral intake related to respiratory distress as evidence by pt unable to tolerate PO due to requiring BIPAP NUTRITION INTERVENTION: 1.) Will add glucerna on L tray. Continue to encourage PO intake as tolerated MONITOR / EVAL: PO, BIPAP, Wt, labs, GI, POC, nutrition status. Will continue to monitor per high nutrition risk guidelines
[2016-10-15] MEDS: fentaNYL 2,500 mCg/250 mL 2,500 MCG in IV Premix 1 EACH IV SCH (11:26)
[2016-10-15] MEDS ORDERED: fentaNYL 2,500 mCg/250 mL 2,500 MCG in IV Premix 1 EACH IV SCH (11:30)
[2016-10-15] MEDS ORDERED: Ondansetron 2 mg/mL 2 mL Inj IVPUSH PRN (11:30)
[2016-10-15] MEDS: Privigen 10% 10 Gm/100 mL, 20 Gm/200 mL IV SCH ×2 (12:09)
--- NOTE | 2016-10-15 13:30 | NUR ---
Social Work Note: Continued Discharge Planning Data& Assessment: Per MD, pt will likely transfer to comfort care and may be passing in the hospital within the next 24 hours. SW met with pt and pt family at bedside to ensure they had SW phone number for any needs. Pt family denies any needs at this time. SW to continue to follow for medical prognosis. SW to continue to follow if any needs arise. Plan: Anticipated transfer to comfort care. . Pt family denies any needs at this time. SW phone number provided. SW to continue to follow for medical prognosis. SW to continue to follow if any needs arise. ROYAL Luciano
--- NOTE | 2016-10-15 17:28 | NUR ---
Comfort measures Pt had another episode of respiratory distress this am ~2 hours after removing BiPAP, Pt's SPO2 sats in the mid 90s on RA after removing BiPAP and denied increase in SOB. MD notified and an additional 0.5mg neostigmine dose given. Pt made slight improvement, MD at bedside ordered 25mcg fentanyl pushes X2 which were effective for Pt's breathing and Pt started on a fentanyl gtt at 25mcg/Hr. Pt reported still feeling some air hunger/resp distress a little later in the am and fentanyl gtt increased to 50mcg/Hr. Pt's breathing became less labored at this time. Comfort measure orders placed and MDs discussed situation with family. Pt's tele removed and Pt repositioned/cleaned as tolerated/for comfort. Coordinated with family/RT and Pt's BiPAP removed at ~1520 after giving PRN dose of IV lorazepam. Pt denied discomfort with mask removed and drifted to sleep. Pt slept comfortably for remainder of shift with SPO2 sats in the 80s, family at bedside kept updated and discussed all interventions with.
--- NOTE | 2016-10-15 18:53 | PCM.PNMED ---
Subjective Date of Service Oct 15, 2016 Subjective Patient is respiratory distress is worsening and is being maintained on BiPAP. This morning vital capacity was attempted to be measured and patient afterwards on the severe respiratory distress. Intubation was again discussed with family and they again declined. Fentanyl was used to calm the patient and treat air hunger. Discussion was again had with family and patient was placed in comfort care. Exam Vital Signs Vital Sign - Last Date Time Temp Pulse Resp B/P Pulse Ox O2 Delivery O2 Flow Rate FiO2 10/15/16 17:19 81 87 Room Air 10/15/16 11:12 17 147/83 50 10/15/16 09:00 37.1 10/14/16 07:27 8.00 Intake and Output 10/14/16 10/14/16 10/15/16 Cumulative From/Thru 15:00 23:00 07:00 10/12/16 06:56 - 10/15/16 06:03 Intake Total 2679 ml 1052 ml 7777 ml Output Total 300 ml 1075 ml Balance 2679 ml 752 ml 6702 ml Intake Oral 0 ml 0 ml 1546 ml IV Total 2679 ml 1052 ml 6231 ml Output Urine Total 300 ml 1075 ml # Voids 3 7 # Bowel Movements 0 1 Exam GenL AOx3; conversive Cardio: RRR Resp: CTA, on bpap, severe distressed witnessed today Abd:soft, non-tender Ext: No edema neuro: Alert and oriented, pt moves all extremities psych: appropriate mood/affect skin: no rashes IVs and Medications Medications Reviewed: Medications were reviewed in detail Lab and Diagnostics Result Diagram: 10/15/16 0340 10/15/16 034 Microbiology Blood culture pending X-Rays, CTs and MRIs PROCEDURE: X-RAY CHEST ONE VIEW, PORTABLE ([id number]) IMPRESSION: 1. Mild CHF versus atypical pneumonia. 2. Hiatal hernia. Dictated by: Desmond Ochoa M.D. on 10/12/2016 at 7:44 Approved by: Desmond Ochoa M.D. on 10/12/2016 at 7:44 PROCEDURE: NM LUNG VQ IMPRESSION: No ventilation/perfusion mismatches to definitively indicate pulmonary embolus. Multiple matched defects are present. Findings correspond to low probability for pulmonary embolus. Dictated by: Desmond Ochoa M.D. on 10/12/2016 at 14:44 Approved by: Desmond Ochoa M.D. on 10/12/2016 at 14:46 PROCEDURE: X-RAY CHEST ONE VIEW ([id number]) IMPRESSION: Mild patchy basilar atelectasis versus pneumonia. Dictated by: Desmond Ochoa M.D. on 10/12/2016 at 10:54 Approved by: Desmond Ochoa M.D. on 10/12/2016 at 10:55 12-lead ECG Sinus tachycardia rate 112, PVCs, no ST, T changes Time 7:09, interpreted by ED physician Assessment & Plan Patient is an 86-year-old female with history of myasthenia gravis, hypertension , diabetes, colon and breast cancer, who presented to [facility] emergency department complaining of shortness of breath. 1. Acute hypoxic respiratory failure with intermittent stridor questionably second to myasthenia gravis: poa; ongoing - Severe decrease in pulmonary function with respiratory distress today -Neostigmine was administered 0.5 mg every 3 IV with additional supplements of 0.5 mg. Patient was not immediately responsive - Continued same Medrol and 25 mg every 8 hours - IVIG day 3 recommended dose of 400 mg/kg per day for 5 days. - Inspiratory/Expiratory pressures and Vital capacity were performed today and the values were significant for the need for intubation - Discussed case with Dr. 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 At this time we do not have a conclusive diagnosis as to the etiology of the respiratory failure the patient has progressed to the point where she needs intubation and has declined. 2. Elevated troponin of unknown significance, present on admission, active. - No complaints of chest pain and patient has been evaluated by Dr. Grant. Pt would not want intervention. Please see Dr. Grant's note. - The plan is to continue beta blockade, aspirin, heparin drip as well as obtaining an echo. 3. Diabetes mellitus type II, no change to current medical therapy. Dispo: Patient has been moved to comfort care after discussion with family and all medications are being withheld except for fentanyl, morphine, Ativan, as well as other comfort care medications. VTE Prophylaxis: Other (Heparin ggt) VTE Mechanical Devices: Intermittant Pneumatic CD Resuscitation Status: CPR: Attempt Resuscitation Time spent 45 minutes Attending Statement Patient seen and examined with housestaff. Agree with all attached documentation. Damir Vidales DO Oct 15, 2016 18:53 Mich Gamble MD Oct 18, 2016 09:58
--- NOTE | 2016-10-15 20:15 | CONS ---
[address] [address] CONSULTATION REPORT PATIENT: SHAISTA CRUZ : 1930 MR#: [id number] ADMIT: 10/12/2016 JOB ID: [id number] DATE OF SERVICE: 10/15/2016 EMERGENT PULMONARY CONSULTATION: REQUESTING PHYSICIAN: Damir Vidales DO REASON FOR CONSULTATION: Respiratory distress. HISTORY PRESENT ILLNESS: Taken from the chart. An 86-year-old female with myasthenia gravis relatively refractory to treatment, hypertension, diabetes, status post colon and breast cancer. She had been doing rather poorly. On BiPAP to help with her respiratory failure due to neuromuscular disease. Earlier today had a vital capacity of 1.4 L and a peak inspiratory pressure of about -22 cm of water. Condition apparently deteriorated. She became very very dyspneic. I was called to evaluate the situation. Chart briefly reviewed. Apparently her respiratory status has been worsening. Getting more dyspneic. Family indicates that she has not been very lucid for the last hour or so, but had previously stated unequivocally that she did not want intubation, especially if there were no specific treatments to reverse the situation. Apparently we are running out of therapies. The only one left was plasmapheresis which could not be accomplished as we do not perform that procedure here and transfer would require intubation. The patient was aware of the situation and declined that yesterday. Opted for comfort care as opposed to any type of intubation. PHYSICAL EXAMINATION: Vital signs: Respiratory rate in the high 30s. Pulse high 100s. Tidal volume with a BiPAP of 18/12 was in the mid 200s. O2 sat running about 89% on an FiO2 of 40%. The patient thrashing purposefully about the bed. Making no eye contact. Very labored grunting respiration. Chest showed markedly decreased breath sounds. Heart: Rapid rate. Abdomen: Soft. Moving all four extremities. Strength in upper extremities was quite good. ASSESSMENT: Discussed the situation in detail with the family who was at the bedside, consisting of and daughter. It was decided at this point we should try to control the patient's symptoms. Explained that the control of the patient's symptoms may leave her unable to make any decisions, basically being asleep. They understood that and understood also that the she was quite firm in her conviction to avoid intubation. Requested comfort care. The patient was therefore given fentanyl. Initially given 25 mg, which resulted in minimal improvement, but an additional 25 mg resulted in the respiratory rate dropping from the mid 30s to the high teens. Tidal volume harmony actually to about 600 when the expiratory positive airway pressure was decreased to 5. Ultimately the inspiratory positive airway pressure was decreased to 12, with tidal volumes running in the high 400s. Respiratory rate remained in the high teens. The patient lost her grunting respiration and seemed comfortable, though not particularly responsive. Discussed the situation with the family. They decided to proceed with this regimen using a fentanyl infusion and possibly p.r.n. and continuous infusion of lorazepam if necessary. They just wanted her to be comfortable and basically we instituted comfort care as her underlying neurologic problem is rather resistant to therapy and apparently has reached end-stage. PLAN: 1. BiPAP at 12/5 with an FiO2 of 30%. Discussed with the family perhaps stopping BiPAP further down the road if no cognitive function can return. 2. Fentanyl IV push 25-50 mcg q. 10 minutes p.r.n. pain or discomfort, with starting infusion at 20-25 mcg/hour. 3. Lorazepam IV push 1-2 mg q. 20 minutes p.r.n. agitation. If frequent bolus is required, start infusion at 2 mg/hour. 4. Comfort care measures. 5. Will can readdress discontinuing BiPAP in the future if such need arises.
[2016-10-16] VITALS (11 sets, daily range): PULSE 72–95; RESP 12–24; O2SAT 73–98
[2016-10-16] MEDS: Neostigmine 1 mg/mL 10 mL Inj IV SCH ×8 (01:05→22:05)
[2016-10-16] MEDS ORDERED: 0.9% Sodium Chloride 100 ML ONE (03:51)
[2016-10-16] MEDS: fentaNYL-PF 50 mCg/mL 2 mL Inj IVPUSH PRN ×2 (06:41→08:09)
--- NOTE | 2016-10-16 07:30 | NUR ---
Respiratory/Comfort Pt had one episode of respiratory distress this morning lasting about 5-10 minutes, RR up and sats down to high 60s. O2 put on for comfort, Fentanyl IV push given and so was morning dose of Neostigme. Episode passed at this point, RR decreased and sats increased. This was all at shift change. Pt currently having no more signs of dyspnea. Day RN aware. Overnight, pt appeared comfortable, sleeping for the most part. Interventions minimal to promote this. HR and sats monitored on [employer], HR 70s, sats high 80s to low 90s on RA throughout night.
[2016-10-16] MEDS: 0.9% Sodium Chloride 1,000 ML IV SCH ×2 (10:20→22:15)
--- NOTE | 2016-10-16 11:38 | PCM.PNMED ---
Subjective Date of Service Oct 16, 2016 Subjective Patient is doing well on just oxygen this morning. She is being kept comfortable with fentanyl and Ativan. She has intermittent episodes of respiratory distress which are treated with boluses of fentanyl and Ativan. Saturating okay this morning reveal a little bit easier without the BiPAP. Exam Vital Signs Vital Sign - Last Date Time Temp Pulse Resp B/P Pulse Ox O2 Delivery O2 Flow Rate FiO2 10/16/16 08:07 81 12 98 OxyMask 6.00 10/15/16 11:12 147/83 50 10/15/16 09:00 37.1 Intake and Output 10/15/16 10/15/16 10/16/16 Cumulative From/Thru 15:00 23:00 07:00 10/12/16 06:56 - 10/16/16 06:17 Intake Total 494 ml 0 ml 8271 ml Output Total 300 ml 1375 ml Balance 494 ml -300 ml 6896 ml Intake Oral 0 ml 0 ml 1546 ml IV Total 494 ml 6725 ml Output Urine Total 300 ml 1375 ml # Voids 3 1 11 # Bowel Movements 1 Exam General: Patient is awake and responsive and seems comfortable. Cardio: Patient has regular rate and rhythm. Respiratory: Patient is scattered crackles , stridor is present intermittently. Abdomen: Positive bowel sounds, non- tender. Patient is on comfort care IVs and Medications Medications Reviewed: Medications were reviewed in detail Lab and Diagnostics Result Diagram: 10/15/16 0340 10/15/16 0340 Microbiology Blood culture pending X-Rays, CTs and MRIs PROCEDURE: X-RAY CHEST ONE VIEW, PORTABLE ([id number]) IMPRESSION: 1. Mild CHF versus atypical pneumonia. 2. Hiatal hernia. Dictated by: Desmond Ochoa M.D. on 10/12/2016 at 7:44 Approved by: Desmond Ochoa M.D. on 10/12/2016 at 7:44 PROCEDURE: NM LUNG VQ IMPRESSION: No ventilation/perfusion mismatches to definitively indicate pulmonary embolus. Multiple matched defects are present. Findings correspond to low probability for pulmonary embolus. Dictated by: Desmond Ochoa M.D. on 10/12/2016 at 14:44 Approved by: Desmond Ochoa M.D. on 10/12/2016 at 14:46 PROCEDURE: X-RAY CHEST ONE VIEW ([id number]) IMPRESSION: Mild patchy basilar atelectasis versus pneumonia. Dictated by: Desmond Ochoa M.D. on 10/12/2016 at 10:54 Approved by: Desmond Ochoa M.D. on 10/12/2016 at 10:55 12-lead ECG Sinus tachycardia rate 112, PVCs, no ST, T changes Time 7:09, interpreted by ED physician Assessment & Plan Patient is an 86-year-old female with history of myasthenia gravis, hypertension , diabetes, colon and breast cancer, who presented to [facility] emergency department complaining of shortness of breath. 1. Acute hypoxic respiratory failure with intermittent stridor questionably second to myasthenia gravis: poa; ongoing - Patient is on comfort care due to progressive respiratory distress with low inspiratory/expiratory pressures and low vital capacity; peak volume is less than 200 which is usually the cut off for intubation which patient declines - Neostigmine was administered 0.5 mg every 3 IV with additional supplements of 0.5 mg. Patient was not immediately responsive when position was present - Continued same Medrol and 25 mg every 8 hours; discontinued - IVIG day 3 recommended dose of 400 mg/kg per day for 5 days; discontinued - Discussed case with Dr. 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 At this time we do not have a conclusive diagnosis as to the etiology of the respiratory failure the patient has progressed to the point where she needs intubation and has declined. 2. Elevated troponin of unknown significance, present on admission, active. - No complaints of chest pain and patient has been evaluated by Dr. Grant. Pt would not want intervention. Please see Dr. Grant's note. - Medications stopped 3. Diabetes mellitus type II, no change to current medical therapy. Dispo: Patient is on comfort care. The patient does not today will consider transfer to another floor, home, or SNF VTE Prophylaxis: Other (Heparin ggt) VTE Mechanical Devices: Intermittant Pneumatic CD Resuscitation Status: CPR: Attempt Resuscitation Attending Statement Pt seen and examined by myself and agree with above plan. Damir Vidales DO Oct 16, 2016 11:38 Theresa Ring MD Oct 16, 2016 15:22
[2016-10-16] MEDS: fentaNYL 2,500 mCg/250 mL 2,500 MCG in IV Premix 1 EACH IV SCH (13:30)
--- NOTE | 2016-10-16 19:10 | NUR ---
Comfort care Pt had multiple respiratory distress episodes today, Pt given IV fentanyl pushes and fentanyl gtt rates increased to 100mcg/Hr and then 125mcg/Hr. Pt also given PRN ativan push X1 this am when having attacks ~Q1. Pt had less attacks as shift progressed. Pt appeared to be sleeping comfortably for majority of shift, family at bedside for majority of shift. Pt repositioned for comfort PRN.
[2016-10-17] VITALS (14 sets, daily range): PULSE 90–109; RESP 7–16; O2SAT 70–80
[2016-10-17] MEDS: Neostigmine 1 mg/mL 10 mL Inj IV SCH ×8 (01:13→23:06)
[2016-10-17] MEDS: fentaNYL 2,500 mCg/250 mL 2,500 MCG in IV Premix 1 EACH IV SCH ×2 (04:04→17:37)
--- NOTE | 2016-10-17 05:46 | NUR ---
Comfort/Transfer Pt had a few episodes of dyspnea/respiratory distress at beginning of shift, Fentanyl drip titrated to comfort and left at 200mcg/hr. Pt slept comfortably since then and no further titration done. Q2 RR and HR checked, positioning for comfort only. Pt continues on RA and has not needed O2 for comfort as Fentanyl titration has been able to help w/ respiratory symptoms. Titration done w/ help from rn relief charge. At around 0415 pt transferred to room 1006, report to RN. Fentanyl drip checked at bedside w/ [facility] RN, pt had no distress en route to room.
--- NOTE | 2016-10-17 05:47 | NUR ---
Admit to Room 1006 Patient arrived to [facility] at 0418 via hospital bed accompanied by Leena Damon RN. Patient is comfort care and on a fentanyl drip running at 200mcq/hr. Patient's breathing in labored, using accessory muscle with throat rattle. Neostigmine is due at 0700. Donor referral # is [id number].
[2016-10-17 07:55] LABS: BASOPHILS % (AUTO) 0 % (0-3); EOSINOPHILS % (AUTO) 0.1 % (0-5); MONOCYTES % (AUTO) 9.1 % (4-12); Mean Corpuscular Hemoglobin 27.9 pg (27.0-35.0); Mean Corpuscular Volume 94.7 fL (81-100); NEUTROPHILS % (AUTO) 72.6 % (40-74); Platelet Count 224 bil/L (150-400)
[2016-10-17] MEDS: 0.9% Sodium Chloride 1,000 ML IV SCH ×2 (10:20→23:50)
--- NOTE | 2016-10-17 12:22 | NUR ---
Social Work Note: Continued Discharge Planning Data& Assessment: Per MD, pt is on comfort care and is expected to in the hospital within the next 24 hours. SW met with pt and pt family at bedside regarding discharge planning, SW role explained. Pt's family not willing to engage in discharge planning at this time. Pt family denies any needs at this time. SW to continue to follow pending clinical course. SW to continue to follow if any needs arise. Plan: Pt transitioned to comfort care. Pt family denies any needs at this time. SW phone number provided. SW to continue to follow for medical prognosis. SW to continue to follow if any needs arise. Daphne Brambila, [employer]
[2016-10-17] MEDS: fentaNYL-PF 50 mCg/mL 2 mL Inj IVPUSH PRN (14:53)
--- NOTE | 2016-10-17 18:06 | NUR ---
COMFORT CARE Fentanyl gtt. is ongoing at this time. Via FELDT scale patients pain level is 0/10 at this time. No anxiety noted. RR-7-10; HR-90-100's. Turned and repositioned as needed for comfort. Skin care and oral care rendered. Family is at the bedside.
--- NOTE | 2016-10-17 20:28 | PCM.PNMED ---
Subjective Date of Service Oct 17, 2016 Subjective Patient is seen and examined. Brother living in the room. She is nonresponsive , appears to be breathing in agony. Family symptoms today. Her brother feels she had a good run and is imminent Exam Vital Signs Vital Sign - Last Date Time Temp Pulse Resp B/P Pulse Ox O2 Delivery O2 Flow Rate FiO2 10/17/16 20:19 106 10 Room Air 10/17/16 19:37 74 10/16/16 08:07 6.00 10/15/16 11:12 147/83 50 10/15/16 09:00 37.1 Intake and Output 10/16/16 10/16/16 10/17/16 Cumulative From/Thru 15:00 23:00 07:00 10/12/16 06:56 - 10/17/16 06:32 Intake Total 128 ml 176 ml 223 ml 8798 ml Output Total 1375 ml Balance 128 ml 176 ml 223 ml 7423 ml Intake Oral 0 ml 0 ml 1546 ml IV Total 128 ml 176 ml 223 ml 7252 ml Output Urine Total 1375 ml # Voids 3 2 16 # Bowel Movements 0 1 Exam General: Non responsive, agonal breathing Neck: Positive for JVD HEart: RRR, no S3/S4 murmurs Lungs: Diminished throughout Abd: Falt Vascular: 2/4 radial pulse IVs and Medications Medications Reviewed: Medications were reviewed in detail Lab and Diagnostics Result Diagram: 10/17/16 0730 10/17/16 0730 Microbiology Blood culture pending X-Rays, CTs and MRIs PROCEDURE: X-RAY CHEST ONE VIEW, PORTABLE ([id number]) IMPRESSION: 1. Mild CHF versus atypical pneumonia. 2. Hiatal hernia. Dictated by: Desmond Ochoa M.D. on 10/12/2016 at 7:44 Approved by: Desmond Ochoa M.D. on 10/12/2016 at 7:44 PROCEDURE: NM LUNG VQ IMPRESSION: No ventilation/perfusion mismatches to definitively indicate pulmonary embolus. Multiple matched defects are present. Findings correspond to low probability for pulmonary embolus. Dictated by: Desmond Ochoa M.D. on 10/12/2016 at 14:44 Approved by: Desmond Ochoa M.D. on 10/12/2016 at 14:46 PROCEDURE: X-RAY CHEST ONE VIEW ([id number]) IMPRESSION: Mild patchy basilar atelectasis versus pneumonia. Dictated by: Desmond Ochoa M.D. on 10/12/2016 at 10:54 Approved by: Desmond Ochoa M.D. on 10/12/2016 at 10:55 12-lead ECG Sinus tachycardia rate 112, PVCs, no ST, T changes Time 7:09, interpreted by ED physician Assessment & Plan Patient is an 86-year-old female with history of myasthenia gravis, hypertension , diabetes, colon and breast cancer, who presented to [facility] emergency department complaining of shortness of breath. 1. Acute hypoxic respiratory failure with intermittent stridor questionably second to myasthenia gravis: poa; ongoing - Patient is on comfort care due to progressive respiratory distress with low inspiratory/expiratory pressures and low vital capacity; peak volume is less than 200 which is usually the cut off for intubation which patient declines - Neostigmine was administered 0.5 mg every 3 IV with additional supplements of 0.5 mg. Patient was not immediately responsive when position was present - Continued same Medrol and 25 mg every 8 hours; discontinued - IVIG day 3 recommended dose of 400 mg/kg per day for 5 days; discontinued - Discussed case with Dr. 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 At this time we do not have a conclusive diagnosis as to the etiology of the respiratory failure the patient has progressed to the point where she needs intubation and has declined. -- Patient was transferred to the [facility] overnight for comfort care. Today she is non responsive and having agonal breathing. 2. Elevated troponin of unknown significance, present on admission, active. - No complaints of chest pain and patient has been evaluated by Dr. Grant. Pt would not want intervention. Please see Dr. Grant's note. - Medications stopped 3. Diabetes mellitus type II, no change to current medical therapy. Dispo: Patient is on comfort care. VTE Prophylaxis: Other (Heparin ggt) VTE Mechanical Devices: Intermittant Pneumatic CD Resuscitation Status: CPR: Attempt Resuscitation SherriDominicMelbavineet TRONCOSO Oct 17, 2016 20:28
[2016-10-18] VITALS (11 sets, daily range): PULSE 85–105; RESP 6–11; O2SAT 73–85
--- NOTE | 2016-10-18 00:12 | NUR ---
Raygoza Catheter Placement- Comfort Care This evening pt has been incontinent of urine, which has required full bed changing. While preforming bed change, patient did not tolerate turning very well. After discussion with extension service specialist in charge, the decision for a raygoza to be placed was made to provide patient comfort. Raygoza has been placed and is draining ondina urine to gravity. Care continues.
[2016-10-18] MEDS: Neostigmine 1 mg/mL 10 mL Inj IV SCH ×8 (02:13→23:54)
[2016-10-18] MEDS: fentaNYL 2,500 mCg/250 mL 2,500 MCG in IV Premix 1 EACH IV SCH ×2 (05:03→18:03)
--- NOTE | 2016-10-18 08:18 | PCM.PNMED ---
Subjective Date of Service Oct 18, 2016 Exam Vital Signs Vital Sign - Last Date Time Temp Pulse Resp B/P Pulse Ox O2 Delivery O2 Flow Rate FiO2 10/18/16 05:29 85 7 Room Air 10/18/16 03:40 76 10/16/16 08:07 6.00 10/15/16 11:12 147/83 50 10/15/16 09:00 37.1 Intake and Output 10/17/16 10/17/16 10/18/16 Cumulative From/Thru 15:00 23:00 07:00 10/12/16 06:56 - 10/18/16 06:02 Intake Total 221 ml 200 ml 9219 ml Output Total 350 ml 1725 ml Balance 221 ml -150 ml 7494 ml Intake Oral 0 ml 0 ml 1546 ml IV Total 221 ml 200 ml 7673 ml Output Urine Total 350 ml 1725 ml # Voids 3 3 22 # Bowel Movements 0 1 Lab and Diagnostics Result Diagram: 10/17/16 0730 10/17/16 0730 Microbiology Blood culture pending X-Rays, CTs and MRIs PROCEDURE: X-RAY CHEST ONE VIEW, PORTABLE ([id number]) IMPRESSION: 1. Mild CHF versus atypical pneumonia. 2. Hiatal hernia. Dictated by: Desmond Ochoa M.D. on 10/12/2016 at 7:44 Approved by: Desmond Ochoa M.D. on 10/12/2016 at 7:44 PROCEDURE: NM LUNG VQ IMPRESSION: No ventilation/perfusion mismatches to definitively indicate pulmonary embolus. Multiple matched defects are present. Findings correspond to low probability for pulmonary embolus. Dictated by: Desmond Ochoa M.D. on 10/12/2016 at 14:44 Approved by: Desmond Ochoa M.D. on 10/12/2016 at 14:46 PROCEDURE: X-RAY CHEST ONE VIEW ([id number]) IMPRESSION: Mild patchy basilar atelectasis versus pneumonia. Dictated by: Desmond Ochoa M.D. on 10/12/2016 at 10:54 Approved by: Desmond Ochoa M.D. on 10/12/2016 at 10:55 12-lead ECG Sinus tachycardia rate 112, PVCs, no ST, T changes Time 7:09, interpreted by ED physician Assessment & Plan Patient is an 86-year-old female with history of myasthenia gravis, hypertension , diabetes, colon and breast cancer, who presented to [facility] emergency department complaining of shortness of breath. 1. Acute hypoxic respiratory failure with intermittent stridor questionably second to myasthenia gravis: poa; ongoing - Patient is on comfort care due to progressive respiratory distress with low inspiratory/expiratory pressures and low vital capacity; peak volume is less than 200 which is usually the cut off for intubation which patient declines - Neostigmine was administered 0.5 mg every 3 IV with additional supplements of 0.5 mg. Patient was not immediately responsive when position was present - Continued same Medrol and 25 mg every 8 hours; discontinued - IVIG day 3 recommended dose of 400 mg/kg per day for 5 days; discontinued - Discussed case with Dr. 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 At this time we do not have a conclusive diagnosis as to the etiology of the respiratory failure the patient has progressed to the point where she needs intubation and has declined. -- Patient was transferred to the [facility] overnight for comfort care. Today she is non responsive and having agonal breathing. 2. Elevated troponin of unknown significance, present on admission, active. - No complaints of chest pain and patient has been evaluated by Dr. Grant. Pt would not want intervention. Please see Dr. Grant's note. - Medications stopped 3. Diabetes mellitus type II, no change to current medical therapy. Dispo: Patient is on comfort care. VTE Prophylaxis: Other (Heparin ggt) VTE Mechanical Devices: Intermittant Pneumatic CD Resuscitation Status: CPR: Attempt Resuscitation Melba Polanco DO Oct 18, 2016 08:17
[2016-10-18] MEDS: fentaNYL-PF 50 mCg/mL 2 mL Inj IVPUSH PRN ×3 (10:29→17:42)
[2016-10-18] MEDS: 0.9% Sodium Chloride 1,000 ML IV SCH ×2 (12:20→23:58)
--- NOTE | 2016-10-18 18:12 | NUR ---
COMFORT CARE Patient was medicated with Fentanyl IV for BTP X 3. Per protocol increase dose to 20 %. Fentanyl gtt. increased to 240 mcg=24 ml/hr. Via FELDT scale patients pain level is 0/10 at this time. Skin care and oral care rendered. Repositioned for comfort. IFC intact and draining to ondina colored UO. Her son is at the bedside at this time.
--- NOTE | 2016-10-18 20:07 | PCM.PNMED ---
Subjective Date of Service Oct 18, 2016 Subjective Patient did not seem examined. She appeared to be a bit more alert today she woke up with the examiner briefly. But did not answer any questions. Continues to struggle to breathe. Exam Vital Signs Vital Sign - Last Date Time Temp Pulse Resp B/P Pulse Ox O2 Delivery O2 Flow Rate FiO2 10/18/16 19:43 95 6 84 Room Air 10/18/16 08:47 10/16/16 08:07 6.00 10/15/16 11:12 50 10/15/16 09:00 37.1 Intake and Output 10/17/16 10/17/16 10/18/16 Cumulative From/Thru 15:00 23:00 07:00 10/12/16 06:56 - 10/18/16 06:02 Intake Total 221 ml 200 ml 9219 ml Output Total 350 ml 1725 ml Balance 221 ml -150 ml 7494 ml Intake Oral 0 ml 0 ml 1546 ml IV Total 221 ml 200 ml 7673 ml Output Urine Total 350 ml 1725 ml # Voids 3 3 22 # Bowel Movements 0 1 Exam Gen.: Nonresponsive other than brief periods when she opens her eyes. Laying in bed. HEENT: Mouth is open Heart regular rate and rhythm, no S3-S4 Lungs: Increased work of breathing, irregular Abdomen: Soft hypoactive O sounds Extremities swollen left arm Neurological not verbally responsive as above Lab and Diagnostics Result Diagram: 10/17/16 0730 10/17/16 0730 Microbiology Blood culture pending X-Rays, CTs and MRIs PROCEDURE: X-RAY CHEST ONE VIEW, PORTABLE ([id number]) IMPRESSION: 1. Mild CHF versus atypical pneumonia. 2. Hiatal hernia. Dictated by: Desmond Ochoa M.D. on 10/12/2016 at 7:44 Approved by: Desmond Ochoa M.D. on 10/12/2016 at 7:44 PROCEDURE: NM LUNG VQ IMPRESSION: No ventilation/perfusion mismatches to definitively indicate pulmonary embolus. Multiple matched defects are present. Findings correspond to low probability for pulmonary embolus. Dictated by: Desmond Ochoa M.D. on 10/12/2016 at 14:44 Approved by: Desmond Ochoa M.D. on 10/12/2016 at 14:46 PROCEDURE: X-RAY CHEST ONE VIEW ([id number]) IMPRESSION: Mild patchy basilar atelectasis versus pneumonia. Dictated by: Desmond Ochoa M.D. on 10/12/2016 at 10:54 Approved by: Desmond Ochoa M.D. on 10/12/2016 at 10:55 12-lead ECG Sinus tachycardia rate 112, PVCs, no ST, T changes Time 7:09, interpreted by ED physician Assessment & Plan Patient is an 86-year-old female with history of myasthenia gravis, hypertension , diabetes, colon and breast cancer, who presented to [facility] emergency department complaining of shortness of breath. 1. Acute hypoxic respiratory failure with intermittent stridor questionably second to myasthenia gravis: poa; ongoing - Patient is on comfort care due to progressive respiratory distress with low inspiratory/expiratory pressures and low vital capacity; peak volume is less than 200 which is usually the cut off for intubation which patient declines - Neostigmine was administered 0.5 mg every 3 IV with additional supplements of 0.5 mg. Patient was not immediately responsive when position was present - Continued same Medrol and 25 mg every 8 hours; discontinued - IVIG day 3 recommended dose of 400 mg/kg per day for 5 days; discontinued - Discussed case with Dr. 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 At this time we do not have a conclusive diagnosis as to the etiology of the respiratory failure the patient has progressed to the point where she needs intubation and has declined. -- Patient was transferred to the [facility] overnight for comfort care. Today she is non responsive and having agonal breathing. 10/17/16 -- Patient was briefly responsive on 05/27 2. Elevated troponin of unknown significance, present on admission, active. - No complaints of chest pain and patient has been evaluated by Dr. Grant. Pt would not want intervention. Please see Dr. Grant's note. - Medications stopped 3. Diabetes mellitus type II, no change to current medical therapy. Dispo: Patient is on comfort care. VTE Prophylaxis: Other (Heparin ggt) VTE Mechanical Devices: Intermittant Pneumatic CD Resuscitation Status: CPR: Attempt Resuscitation Melba Polanco DO Oct 18, 2016 20:07
[2016-10-19] VITALS (8 sets, daily range): PULSE 90–104; RESP 6–12; O2SAT 76–92
--- NOTE | 2016-10-19 00:36 | NUR ---
Restlessness At approx 0000 patient started to moan more frequently and become more restless.When this nurse was at bedside patient cried out "help me, help me." After discussion with escapement matcher, 0.5mg Ativan IVP was given to promote comfort, and decrease agitation. Patient appears to be resting more comfortably now. Will continue to monitor, and assess for discomfort.
[2016-10-19] MEDS: Neostigmine 1 mg/mL 10 mL Inj IV SCH ×7 (02:55→21:32)
[2016-10-19] MEDS: fentaNYL 2,500 mCg/250 mL 2,500 MCG in IV Premix 1 EACH IV SCH ×2 (04:00→15:40)
[2016-10-19] MEDS: 0.9% Sodium Chloride 1,000 ML IV SCH (13:20)
--- NOTE | 2016-10-19 17:33 | NUR ---
Comfort care patient minimally responsive; will open eyes slightly wiggle toes and squeeze hand with verbal when asked. patient has been non-verbal. FELDT score has been 0 throughout the day. bed bath and oral care performed today. repositions PRN for comfort. education performed with patient's family about what to expect with end of life care; body movements, breathing pattern, difficult to predict end of life, "everyone goes at their own time". family verbalized understanding. continue to monitor.
--- NOTE | 2016-10-19 23:27 | NUR ---
Restlessness At approx 2030 patient started to call out more, and appeared uncomfortable with a FEDLT score of 3. 0.5mg of Lorazepam IVP was given. Shortly after patient was able to settle down, and now appears much more comfortable and in less distress. Breathing appears more regular. Will continue to monitor.
[2016-10-20] VITALS (7 sets, daily range): PULSE 100–115; RESP 12–18; O2SAT 87–88
[2016-10-20] MEDS: Neostigmine 1 mg/mL 10 mL Inj IV SCH ×8 (00:37→22:46)
[2016-10-20] MEDS: 0.9% Sodium Chloride 1,000 ML IV SCH ×2 (00:38→14:20)
[2016-10-20] MEDS: fentaNYL 2,500 mCg/250 mL 2,500 MCG in IV Premix 1 EACH IV SCH ×3 (01:14→22:51)
--- NOTE | 2016-10-20 06:18 | PCM.PNMED ---
Subjective Date of Service Oct 20, 2016 Subjective Patient is seen and examined. She is following commands, responding to pain, opening eyes and tracking . Otherwise, non-verbal. Appears to be having agonal breaths periodically. Exam Vital Signs Vital Sign - Last Date Time Temp Pulse Resp B/P Pulse Ox O2 Delivery O2 Flow Rate FiO2 10/20/16 04:40 108 12 10/20/16 00:36 87 10/19/16 16:17 Room Air 10/18/16 08:47 10/16/16 08:07 6.00 10/15/16 11:12 50 10/15/16 09:00 37.1 Intake and Output 10/19/16 10/19/16 10/20/16 Cumulative From/Thru 15:00 23:00 07:00 10/12/16 06:56 - 10/20/16 04:56 Intake Total 0 ml 279 ml 248 ml 9991 ml Output Total 450 ml 500 ml 3175 ml Balance -450 ml -221 ml 248 ml 6816 ml Intake Oral 0 ml 0 ml 1546 ml IV Total 279 ml 248 ml 8445 ml Output Urine Total 450 ml 500 ml 3175 ml # Voids 22 # Bowel Movements 1 Exam General: Eyes closed, mouth open. Laying in bed Eyes: Constricted pupils, reactive to light Heart: RRR, no s3/s4 Lungs: heather-an respiration pattern Abd: Soft, non tender, hypoactive bowel sounds Vascular: dorsalis pedis 2/4 IVs and Medications Medications Reviewed: Medications were reviewed in detail Lab and Diagnostics Result Diagram: 10/17/16 0730 10/17/16 0730 Microbiology Blood culture pending X-Rays, CTs and MRIs PROCEDURE: X-RAY CHEST ONE VIEW, PORTABLE ([id number]) IMPRESSION: 1. Mild CHF versus atypical pneumonia. 2. Hiatal hernia. Dictated by: Desmond Ochoa M.D. on 10/12/2016 at 7:44 Approved by: Desmond Ochoa M.D. on 10/12/2016 at 7:44 PROCEDURE: NM LUNG VQ IMPRESSION: No ventilation/perfusion mismatches to definitively indicate pulmonary embolus. Multiple matched defects are present. Findings correspond to low probability for pulmonary embolus. Dictated by: Desmond Ochoa M.D. on 10/12/2016 at 14:44 Approved by: Desmond Ochoa M.D. on 10/12/2016 at 14:46 PROCEDURE: X-RAY CHEST ONE VIEW ([id number]) IMPRESSION: Mild patchy basilar atelectasis versus pneumonia. Dictated by: Desmond Ochoa M.D. on 10/12/2016 at 10:54 Approved by: Desmond Ochoa M.D. on 10/12/2016 at 10:55 12-lead ECG Sinus tachycardia rate 112, PVCs, no ST, T changes Time 7:09, interpreted by ED physician Assessment & Plan Patient is an 86-year-old female with history of myasthenia gravis, hypertension , diabetes, colon and breast cancer, who presented to [facility] emergency department complaining of shortness of breath. 1. Acute hypoxic respiratory failure with intermittent stridor questionably second to myasthenia gravis: poa; ongoing - Patient is on comfort care due to progressive respiratory distress with low inspiratory/expiratory pressures and low vital capacity; peak volume is less than 200 which is usually the cut off for intubation which patient declines - Neostigmine was administered 0.5 mg every 3 IV with additional supplements of 0.5 mg. Patient was not immediately responsive when position was present - Continued same Medrol and 25 mg every 8 hours; discontinued - IVIG day 3 recommended dose of 400 mg/kg per day for 5 days; discontinued - Discussed case with Dr. 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 At this time we do not have a conclusive diagnosis as to the etiology of the respiratory failure the patient has progressed to the point where she needs intubation and has declined. -- Patient was transferred to the [facility] overnight for comfort care. Today she is non responsive and having agonal breathing. 10/17/16 -- Patient was briefly responsive on 05/27 -- Patient is following commands on 10/19/16 2. Elevated troponin of unknown significance, present on admission, active. - No complaints of chest pain and patient has been evaluated by Dr. Grant. Pt would not want intervention. Please see Dr. Grant's note. - Medications stopped 3. Diabetes mellitus type II, no change to current medical therapy. Dispo: Patient is on comfort care. VTE Prophylaxis: Other (Heparin ggt) VTE Mechanical Devices: Intermittant Pneumatic CD Resuscitation Status: CPR: Attempt Resuscitation Melba Polanco DO Oct 20, 2016 06:18
[2016-10-20] MEDS: fentaNYL-PF 50 mCg/mL 2 mL Inj IVPUSH PRN ×2 (08:50→10:26)
--- NOTE | 2016-10-20 15:01 | NUR ---
Social Work Note: Continued Discharge Planning Data& Assessment: Pt remains on comfort care. Pt has been on comfort care for a number of days. MD has been anticipating pt passing daily. Pt prognosis is uncertain at this time. SW spoke with MD about the potential for pt being stable for transfer home with hospice vs. to a SNF private pay with hospice. MD explained they would evaluate pt for stability and being medically able to transfer and be discharged. SW met with pt family at bedside to discuss discharge planning. Pt family explained they are uncomfortable with pt leaving the hospital. SW explained that if pt come to the point where she becomes and remains stable, she would be discharged to continue on a comfort care pathway on an outpt basis. Pt family confirmed understanding but wanted to know for sure from the MD about prognosis prior to discussing any discharge planning or putting pt on the Hospice schedule. Hospice is booked out until the end of this week at this time. SW to follow up with pt family once pt prognosis is clarified. Pt family denies any other needs at this time. SW to continue to follow. Plan: Pt is anticipated to pass during this hospitalization vs. discharging to SNF private pay vs. Home with Hospice. SW to follow up with pt family once pt prognosis is clarified. Pt family denies any other needs at this time. SW to continue to follow. ROYAL Luciano
--- NOTE | 2016-10-20 17:48 | NUR ---
COMFORT/CARE Patient has been noted to be restless at times. Fentanyl IV for BTP and Ativan IV administered. Patient continues to be on a Fentanyl gtt at 240 mcg/hr. Via FELDT scale patients pain level is 0/10. Skin care and oral care rendered. Turned as needed for comfort. Family has been visiting her throughout the day. PER CHARO PATIENT IS NOT SUITABLE FOR DONOR REFERRAL.
--- NOTE | 2016-10-20 20:33 | PCM.PNMED ---
Subjective Date of Service Oct 20, 2016 Subjective Patient appears to be nonresponsive today. Her eyes closed and labored breathing noted. Respirations are down to 8. Oxygen saturations are also dropping to 70s at times. Brother is in the room sitting by her bed and he is thinking she will pass tonight. No other concerns were expressed. Exam Vital Signs Vital Sign - Last Date Time Temp Pulse Resp B/P Pulse Ox O2 Delivery O2 Flow Rate FiO2 10/20/16 17:18 102 12 10/20/16 12:33 Room Air 10/20/16 08:50 88 10/18/16 08:47 10/16/16 08:07 6.00 10/15/16 11:12 50 10/15/16 09:00 37.1 Intake and Output 10/19/16 10/19/16 10/20/16 Cumulative From/Thru 15:00 23:00 07:00 10/12/16 06:56 - 10/20/16 04:56 Intake Total 0 ml 279 ml 248 ml 9991 ml Output Total 450 ml 500 ml 3175 ml Balance -450 ml -221 ml 248 ml 6816 ml Intake Oral 0 ml 0 ml 1546 ml IV Total 279 ml 248 ml 8445 ml Output Urine Total 450 ml 500 ml 3175 ml # Voids 22 # Bowel Movements 1 Exam Gen.: Unresponsive HEENT: Eyes closed, pupils constricted, mouth is open Lungs: heather Bhatt respirations noted Abdomen: Soft nontender, hypoactive bowel sounds. Extremities: Positive for edema Vascular: 2+ out of 4 dorsalis pedis and radial pulse IVs and Medications Medications Reviewed: Medications were reviewed in detail Lab and Diagnostics Result Diagram: 10/17/1672910/17/16729 Microbiology Blood culture pending X-Rays, CTs and MRIs PROCEDURE: X-RAY CHEST ONE VIEW, PORTABLE ([id number]) IMPRESSION: 1. Mild CHF versus atypical pneumonia. 2. Hiatal hernia. Dictated by: Desmond Ochoa M.D. on 10/12/2016 at 7:44 Approved by: Desmond Ochoa M.D. on 10/12/2016 at 7:44 PROCEDURE: NM LUNG VQ IMPRESSION: No ventilation/perfusion mismatches to definitively indicate pulmonary embolus. Multiple matched defects are present. Findings correspond to low probability for pulmonary embolus. Dictated by: Desmond Ochoa M.D. on 10/12/2016 at 14:44 Approved by: Desmond Ochoa M.D. on 10/12/2016 at 14:46 PROCEDURE: X-RAY CHEST ONE VIEW ([id number]) IMPRESSION: Mild patchy basilar atelectasis versus pneumonia. Dictated by: Desmond Ochoa M.D. on 10/12/2016 at 10:54 Approved by: Desmond Ochoa M.D. on 10/12/2016 at 10:55 12-lead ECG Sinus tachycardia rate 112, PVCs, no ST, T changes Time 7:09, interpreted by ED physician Assessment & Plan Patient is an 86-year-old female with history of myasthenia gravis, hypertension , diabetes, colon and breast cancer, who presented to [facility] emergency department complaining of shortness of breath. 1. Acute hypoxic respiratory failure with intermittent stridor questionably second to myasthenia gravis: poa; ongoing - Patient is on comfort care due to progressive respiratory distress with low inspiratory/expiratory pressures and low vital capacity; peak volume is less than 200 which is usually the cut off for intubation which patient declines - Neostigmine was administered 0.5 mg every 3 IV with additional supplements of 0.5 mg. Patient was not immediately responsive when position was present - Continued same Medrol and 25 mg every 8 hours; discontinued - IVIG day 3 recommended dose of 400 mg/kg per day for 5 days; discontinued - Discussed case with Dr. 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 At this time we do not have a conclusive diagnosis as to the etiology of the respiratory failure the patient has progressed to the point where she needs intubation and has declined. -- Patient was transferred to [facility] overnight for comfort care. Today she is non responsive and having agonal breathing. 10/17/16 -- Patient was briefly responsive on 05/27 -- Patient is following commands on 10/19/16 -- Patient is not following commands on 10/20/16 2. Elevated troponin of unknown significance, present on admission, active. - No complaints of chest pain and patient has been evaluated by Dr. Grant. Pt would not want intervention. Please see Dr. Grant's note. - Medications stopped 3. Diabetes mellitus type II, no change to current medical therapy. Dispo: Patient is on comfort care. VTE Prophylaxis: Other (Heparin ggt) VTE Mechanical Devices: Intermittant Pneumatic CD Resuscitation Status: CPR: Attempt Resuscitation Melba Polanco DO Oct 20, 2016 20:33
[2016-10-21 01:25] VITALS: RESP 24
[2016-10-21] MEDS: Neostigmine 1 mg/mL 10 mL Inj IV SCH (01:25)
--- NOTE | 2016-10-21 02:29 | NUR ---
PT had been on a fentanyl gtt and was given 2mg of ativan once. At 0155 pt was found . All drains removed from pt. Both her daughter Keshawn and son Saleem were called. They will not be coming in to view the body. [facility] notified of her which is where all arrangements for pt are. All appropriate staff notified.
--- NOTE | 2016-10-23 21:32 | PCM.DC.MED ---
Discharge Summary Date of Service Oct 23, 2016 Dates of Hospitalization Date of Hospital Admission Oct 12, 2016 at 11:00 Date of Discharge: Oct 21, 2016 Providers: Admitting Physician: Tiffanie Smith DO Primary Care Physician: Arielle Berger Attending Physician: Tiffanie Smith DO Diagnosis at Time of Discharge Diagnosis at Time of Discharge Acute respiratory failure due to myesthenia gravis, Mild CHF vs. Pneumonia, Elevated troponins of unknown significance, DM II Procedures XRay, CTs & MRIs [facility] Diagnostic Imaging Department [place], [place] [id number] Patient Name: SHAISTA NOLASCO MR#: [id number] Location: [facility] [place] Ordering Phys: Temo Sanchez MD Date of Service: 10/12/16 0949 PROCEDURE: NM LUNG VQ RADIOPHARMACEUTICAL: 28.9 mCi Tc-99m DTPA aerosol by inhalation and 5.4 mCi Tc- 99m MAA intravenously. INDICATIONS: chest pain elevated ddimer TECHNIQUE: Ventilation images were obtained first with Tc-99m DTPA aerosol. Subsequently, perfusion images were acquired after intravenous injection of Tc-99m MAA. Anterior, posterior, SOMMER, FRISIAN, RPO, LPO, left and right lateral views were obtained. COMPARISON: [facility], CR, XR CHEST 1VW (PORTABLE), 10/12/2016, 7: 10. [facility], CR, XR CHEST 1VW, 10/12/2016, 10:40. FINDINGS: Moderate-sized matched defect within the left mid lung anteriorly. Moderate to large matched defect within the right lower lung and mid lung anteriorly. Small matched defect within the right anterior lung inferiorly. IMPRESSION: No ventilation/perfusion mismatches to definitively indicate pulmonary embolus. Multiple matched defects are present. Findings correspond to low probability for pulmonary embolus. Dictated by: Desmond Ochoa M.D. on 10/12/2016 at 14:44 Approved by: Desmond Ochoa M.D. on 10/12/2016 at 14:46 [facility] Diagnostic [place] [address] Patient Name: SHAISTA NOLASCO MR#: [id number] Location: [facility] [place] Ordering Phys: Damir Vidales DO Date of Service: 10/15/16 0600 PROCEDURE: X-RAY CHEST ONE VIEW, PORTABLE ([id number]) INDICATIONS: SHORT OF BREATH TECHNIQUE: One view of the chest was acquired. COMPARISON: [facility], CR, XR CHEST 1VW (PORTABLE), 10/13/2016, 15: 15. FINDINGS: Surgical changes and devices: None. Lungs and pleura: No pleural effusions or pneumothorax. Bibasilar airspace opacities present and small hiatal hernia. Mediastinum: Mediastinal contours appear normal. Heart size is normal. Bones and chest wall: No suspicious bony lesions. Overlying soft tissues appear unremarkable. IMPRESSION: Bibasilar atelectasis versus aspiration or pneumonia. Correlate clinically. Dictated by: Han Sims RRA Interpreted: Mary Viramontes MD on 10/15/2016 at 8:00 Transcribed by: GIANA on 10/15/2016 at 8:01 Approved by: Mary Viramontes M.D. on 10/17/2016 at 16:05 [facility] Diagnostic Imaging Department [place], [place] [id number] Patient Name: SHAISTA NOLASCO MR#: [id number] Location: [facility] [place] Ordering Phys: Temo Sanchez MD Date of Service: 10/12/16 0711 PROCEDURE: X-RAY CHEST ONE VIEW, PORTABLE ([id number]) INDICATIONS: dyspnea TECHNIQUE: One view of the chest was acquired. COMPARISON: [facility], CR, XR CHEST 2V AP/PA AND LAT, 09/09/2016 , 6:39 PM. FINDINGS: Surgical changes and devices: None. Lungs and pleura: No pleural effusions or pneumothorax. Mild basilar predominant interstitial pulmonary opacity. Mediastinum: Moderate hiatal hernia. Mediastinal contours otherwise appear normal. Heart size is normal. Bones and chest wall: No suspicious bony lesions. Overlying soft tissues appear unremarkable. IMPRESSION: 1. Mild CHF versus atypical pneumonia. 2. Hiatal hernia. Dictated by: Desmond Ochoa M.D. on 10/12/2016 at 7:44 Approved by: Desmond Ochoa M.D. on 10/12/2016 at 7:44 [facility] Diagnostic Imaging Department [place], [place] [id number] Patient Name: SHAISTA NOLASCO MR#: [id number] Location: [facility] [place] Ordering Phys: Temo Sanchez MD Date of Service: 10/12/16 0949 PROCEDURE: X-RAY CHEST ONE VIEW ([id number]) INDICATIONS: chest pain V/Q Scan pending TECHNIQUE: One lateral view of the chest was acquired. COMPARISON: [facility], CR, XR CHEST 1VW (PORTABLE), 10/12/2016, 7: 10. FINDINGS: Surgical changes and devices: None. Lungs and pleura: No pleural effusions or pneumothorax. Mild patchy basilar atelectasis versus pneumonia. Mediastinum: Mediastinal contours appear normal. Heart size is normal. Bones and chest wall: No suspicious bony lesions. Overlying soft tissues appear unremarkable. IMPRESSION: Mild patchy basilar atelectasis versus pneumonia. Dictated by: Desmond Ochoa M.D. on 10/12/2016 at 10:54 Approved by: Desmond Ochoa M.D. on 10/12/2016 at 10:55 [facility] Diagnostic [place] [address] Patient Name: SHAISTA NOLASCO MR#: [id number] Location: [facility] Ordering Phys: Mich Gamble MD Date of Service: 10/13/16 1515 PROCEDURE: X-RAY CHEST ONE VIEW, PORTABLE ([id number]) INDICATIONS: 86-year-old female with dyspnea. TECHNIQUE: One view of the chest was acquired. COMPARISON: [facility], CT, CT CHEST W CONTRAST, 03/08/2016, 10: 34 AM. [facility], CR, XR CHEST 1VW, 10/12/2016, 10:40. [facility], CR, XR CHEST 1VW (PORTABLE), 10/12/2016, 7:10. [facility], CR, XR CHEST 2V AP/PA AND LAT, 09/09/2016, 6:39 PM. FINDINGS: Surgical changes and devices: None. Lungs and pleura: No pleural effusions or pneumothorax. Lungs are clear. Mediastinum: Large retrocardiac hiatal hernia is again noted. Heart size is normal giving AP technique. Bones and chest wall: No suspicious bony lesions. Overlying soft tissues appear unremarkable. IMPRESSION: No acute cardiopulmonary disease. Sizable retrocardiac hiatal hernia as before. Dictated by: Pb Gooden M.D. on 10/13/2016 at 15:41 Approved by: Pb Gooden M.D. on 10/13/2016 at 15:42 ECG 12 Lead Sinus tachycardia rate 112, PVCs, no ST, T changes Time 7:09, interpreted by ED physician Cardiac Echo Impression [facility] Diagnostic [place] [address] Patient Name: SHAISTA NOLASCO MR#: [id number] Location: [facility] Ordering Phys: Eliana Nolasco DO Date of Service: 10/13/16 1844 [facility] [address] [place] [address] Echocardiogram Report Name: SHAISTA NOLASCO MStudy Date: 10/13/2016 Height: 65 in Hospital Exam Location: [facility] Weight: 192 lb Gender: Female BSA: 1.9 m2 : 1930 Age: 86 yrs BP: 117/74 m mHg Reason For Study: SOB, ELEVATED TROPONIN History: HTN,HIATAL HERNIA Ordering Physician: HOSPITALIST [facility] Performed By: Kaley Flor Referring Physician: BJ Berger Interpretation Summary 1. Normal left ventricular size and wall thickness with wall motion abnormalities as noted below. Estimated global EF is 35% 2. Normal right ventricular size and systolic function. The estimated RVSP is 39 mm Hg 3. No evidence for significant valvular pathology These findings may be consistent with a Takotsubo (stress) cardiomyopathy Procedure: A two-dimensional transthoracic echocardiogram with color flow and Doppler was performed. There is no prior echocardiogram noted for this patient. The study quality was technically adequate. The patient was in normal sinus rhythm during the exam. Left Ventricle: There is normal left ventricular wall thickness. The left ventricle is normal in size. No thrombus is appreciated in the sampled segments. Left ventricular ejection fraction is estimated to be 35%. There is hypokinesis of the distal/apical segments with compensatory hyperkinesis of the basal segments. Spectral Doppler of the mitral valve is reversed, with an E/A wave ratio < 0.8. Right Ventricle: The right ventricle is normal in size and function. Possible hypokinesis of the apical segment. Atria: The left atrium is mildly dilated. Right atrial size is normal. There is no Doppler evidence for an interatrial shunt. Mitral Valve: The mitral valve leaflets are mildly calcified. There is mild mitral annular calcification. There is trace mitral regurgitation. Aortic Valve: The aortic valve is not well visualized. There is no aortic valve stenosis. Doppler findings do not suggest aortic stenosis. No aortic regurgitation is present. Tricuspid Valve: The tricuspid valve is not well visualized, but is grossly normal. There is a trace or physiologic amount of tricuspid regurgitation. The right ventricular systolic pressure is estimated at least 39 mmHg assuming a right atrial pressure of 15 mm Hg. Pulmonic Valve: The pulmonic valve is not well visualized. There is trace pulmonic regurgitation. Great Vessels: The aortic root is normal size. The ascending aorta is normal in size. The IVC is dilated (diameter is greater than 2.1 cm) and it collapses less than 50% with a sniff. This suggests a high right atrial pressure of 15 mm Hg. Pericardium/ Pleura There is no pericardial effusion. MMode/2D Measurements & Calculations LVIDd: 4.7 cm LA A2 area RA long axis: 4.6 cm LVOT diam: 1.9 cm LVIDs: 3.1 cm Ao root diam: 3.3 cm FS: 34.0 % RA area: 14.5 cm Aortic Jxn: 2.3 cm IVSd: 0.94 cm LA A4 area RA vol: 38.7 ml asc Aorta Diam: 3.2 cm LVPWd RA : 19.9 ml/m2 : 0.8cm LA length (vol) LA vol: 68.2 ml LA vol index IVC diam: 2.6 cm LVAd ap4 LVAd ap2 LV boucher. diameter/BSA LV sys. diameter/BSA : 18.6 2m : 23.1 cm (cm/m^2): 2.4 (cm/m^2): 1.6 LVLd ap2: 6.7 cm EDV(MOD-sp2) EDV(sp2-el) : 67.7 ml RVD1 (basal) TAPSE: 1.8 cm Doppler Measurements & Calculations Ao V2 max MV E max paul MV E/A: 0.63 TR max paul : 111.8 cm/sec : 67.1 cm/sec Med Peak E' Paul : 242.8 cm/sec Ao max PG MV A max paul TR max PG : 5.0 mmHg : 107.2 cm/sec E/E' med: 23.6 : 23.6 mmHg Ao mean PG MV P1/2t: 41.5 msec Lat Peak E' Paul PA V2 max : 80.3 cm/sec LVOT Max Paul E/E' lat: 5.7 PA mean PG : 84.2 cm/sec E/e' average: 14.7 LIZETH(I,D): 1.8 cm Pulm A Revs Dur PA Accel Time sev ratio : 0.13 sec MV A dur: 0.12 sec MV dec time MV P1/2t max paul Ao V2 mean LV V1 max PG : 0.14 sec : 74.6 cm/sec MVA(P1/2t): 5.3 cm2 Ao V2 VTI: 21.1 cm LV V1 VTI LIZETH(V,D): 2.1 cm2 : 13.9 cm PA V2 mean LIZETH indexed to BSA Pulm A Revs Dur - MV : 53.5 cm/sec (cm^2/m^2): 0.95 A Dur: -0.04 msec Reading Physician:03:37 PM Other Diagnostics RUN DATE: 10/13/16 [facility] LAB LIVE PAGE 1 RUN TIME: 802 Specimen Inquiry PHYSICIAN Name: SHAISTA NOLASCO Age/Sex: 86/F Attend Dr: Tiffanie Smith DO Acct: [id number] Unit: [id number] Status: ADM IN Location: [facility] [place] 3016-1 Re10/12/16 Disch: Specimen: [id number] Collected: 10/12/16 Status: DARRYL Repatience#: [id number] Received: 10/13/16 Source: KARIN Sp Desc : VTM Subm Dr: Eliana Nolasco DO Ordered: RVP Comments: Collected by Nurse/Unit? Y/N Y Procedure Result Verified Site Microbiology ADENOVIRUS RESPIRATORY PCR Final 10/13/16 Not Detected CORONOVIRUS 229E Final 10/13/16 Not Detected CORONOVIRUS HKU1 Final 10/13/16 Not Detected CORONOVIRUS NL63 Final 10/13/16 Not Detected CORONOVIRUS OC43 Final 10/13/16 Not Detected INFLUENZA A PCR Final 10/13/16 Not Detected INFLUENZA B PCR Final 10/13/16 Not Detected METAPNEUMOVIRUS PCR Final 10/13/16 Not Detected RHINOVIRUS OR ENTEROVIRUS PCR Final 10/13/16 Not Detected PARAINFLUENZA 1 PCR Final 10/13/16 Not Detected PARAINFLUENZA 2 PCR Final 10/13/16 Not Detected PARAINFLUENZA 3 PCR Final 10/13/16 Not Detected PARAINFLUENZA 4 PCR Final 10/13/16 Not Detected CONTINUED ON NEXT PAGE RUN DATE: 10/13/16 [facility] LIVE PAGE 2 RUN TIME: 802 Specimen Inquiry PHYSICIAN Patient: SHAISTA NOLASCO [id number] (Continued) Specimen: [id number] Collected: 10/12/16 Received: 10/13/16 (Continued) Procedure Result Verified Site RESP SYNCYTIAL VIRUS PCR Final 10/13/16 Not Detected Microbiology (Continued) CHLAMDOPHILIA PNEUMONIAE PCR Final 10/13/16 Not Detected MYCOPLASMA PNEUMONIAE PCR Final 10/13/16 MYCO PNEUMONIAE PCR Not Detected Reference Interval Not Detected MANAGER PROCUREMENT swab is the only specimen type cleared by the FDA. Nasal wash, tracheal aspirate, and bronchial lavage specimen types have not been cleared by the FDA. Therefore results on any specimen type other than nasopharyngeal are considered investigational testing only. END OF REPORT Brief History This is a very pleasant 86-year-old female without cardiac history who presents to the [facility] emergency department via EMS complaining of shortness of breath that started yesterday. She claims that she had 3 hospitalizations within the last 6 months due to shortness of breath. Every time to workup was negative to find the cause of her shortness of breath. She states she felt somewhat short of breath last night before she went to bed. She also endorses intermittent right-sided chest pain last night. She woke up this morning with a repeated episode of shortness of breath. She denies cough, fever, chest pain, nausea, vomiting, dysuria, chills, fever, weakness. She is not on oxygen at home. She does not have history of asthma, COPD, and she is not a smoker. As of note, patient has a history of myasthenia gravis, diabetes and hypertension. In the emergency department her temperature was 36.7, pulse 121, respirations 32 , blood pressure 118/83, pulse ox 89 room air. Her white blood count was noted to be 10.9, blood glucose of 203, troponin of 0.572, proBNP 1986, AST 52, ALT 39 , her d-dimer is 6. She was given pyridostigmine and steroids and her shortness of breath improved significantly. Hospital Course Patient is an 86-year-old female with history of myasthenia gravis, hypertension , diabetes, colon and breast cancer, who presented to [facility] emergency department complaining of shortness of breath. 1. Acute hypoxic respiratory failure with intermittent stridor questionably second to myasthenia gravis: poa; ongoing - Patient is on comfort care due to progressive respiratory distress with low inspiratory/expiratory pressures and low vital capacity; peak volume is less than 200 which is usually the cut off for intubation which patient declined. Neostigmine was administered 0.5 mg every 3 IV with additional supplements of 0.5 mg. - She was give 25 mg IV solu emdrol Q8H but later discontinued. IVIG day 3 recommended dose of 400 mg/kg per day for 5 days; discontinued - Discussed case with Dr. 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 At this time we do not have a conclusive diagnosis as to the etiology of the respiratory failure the patient has progressed to the point where she needs intubation and has declined. -- Patient was transferred to [facility] overnight for comfort care on 10/16/16. She was noted to be non responsive and having agonal breathing on 10/17/16. Patient was briefly responsive on 05/27. Patient is following commands on 10/19/16. Patient is not following commands on 10/20/16. Patient peacefully on 10/21/16 AM. 2. Elevated troponin of unknown significance, present on admission, active. - No complaints of chest pain and patient has been evaluated by Dr. Grant. Pt would not want intervention. Please see Dr. Grant's note. - Medications were stopped 3. Diabetes mellitus type II, no change to her current medical therapy. Exam Vital Signs (Last) Date Time Temp Pulse Resp B/P Pulse Ox O2 Delivery O2 Flow Rate FiO2 10/21/16 01:25 24 10/20/16 17:18 102 10/20/16 12:33 Room Air 10/20/16 08:50 88 10/18/16 08:47 Exam Please see progress note from 10/20/16. Test 10/12/16 07:00 10/12/16 09:02 10/13/16 06:20 10/13/16 09:05 Pro-B-Type Natriuretic Peptide 1986pg/mL (0-738) Hold Dean Top Tube Received (Received) D-Dimer 0.6mg/L (<0.50) Hemoglobin A1c 6.9% (4.8-5.6) Triglycerides Level 138mg/dL (0-149) Cholesterol Level 163mg/dL (100-199) LDL Cholesterol, Calculated 131.400mg/dL (0-99) VLDL Cholesterol 27.600mg/dL HDL Cholesterol 4mg/dL (>39) Cholesterol/HDL Ratio 40.75 (0.0-4.4) Hold Purple Top Tube Received (Received) Hold [place] Top Tube Received (Received) Test 10/14/16 04:00 10/15/16 03:40 10/16/16 04:20 10/17/16 07:30 Troponin T 0.291ug/L (0.0-0.011) Phosphorus Level 3.8mg/dL (2.5-4.9) Magnesium Level 2.0mg/dL (1.6-2.6) Procalcitonin 0.37ng/mL (0.00-0.08) Activated Partial Thromboplast Time 21.0sec (22.8-33.0) White Blood Count 8.8th/mm3 (3.8-10.1) Red Blood Count 3.98mil/mm3 (3.90-5.20) Hemoglobin 11.1g/dL (12.0-15.6) Hematocrit 37.7% (35.0-46.0) Mean Corpuscular Volume 94.7fL (81-100) Mean Corpuscular Hemoglobin 27.9pg (27.0-35.0) Mean Corpuscular Hemoglobin Concent 29.4% (32.0-37.0) Red Cell Distribution Width 14.4% (12.3-15.4) Platelet Count 224bil/L (150-400) Neutrophils (%) (Auto) 72.6% (40-74) Lymphocytes (%) (Auto) 17.6% (14-46) Monocytes (%) (Auto) 9.1% (4-12) Eosinophils (%) (Auto) 0.1% (0-5) Basophils (%) (Auto) 0% (0-3) Sodium Level 143mEq/L (134-144) Potassium Level 4.5mEq/L (3.5-5.2) Chloride Level 108mEq/L (97-108) Carbon Dioxide Level 24mmol/L (18-29) Blood Urea Nitrogen 26mg/dL (8-27) Creatinine 0.85mg/dL (0.57-1.00) Estimat Glomerular Filtration Rate 91mL/min (>59) Glucose Level 160mg/dL (60-99) Calcium Level 8.4mg/dL (8.5-10.1) Total Bilirubin 0.5mg/dL (0.0-1.2) Aspartate Amino Transf (AST/SGOT) 67U/L (0-50) Alanine Aminotransferase (ALT/SGPT) 156U/L (0-32) Alkaline Phosphatase 65U/L (25-165) Total Protein 6.4g/dL (6.4-8.4) Albumin 3.4g/dL (3.4-5.0) Microbiology Results Blood cultures are NGTD Discharge Medications Discharge Medications ([pyredestagmo]) 600 MG PO QID (Reported) Aspirin (Aspirin) 81 Mg Tablet 81 MG PO DAILY (Reported) Calcium Carbonate (Calcium) 600 Mg Tablet 600 MG PO DAILY (Reported) Cholecalciferol (Vitamin D3) (Vitamin D3) 400 Unit Tablet 400 UNIT PO DAILY ( Reported) Cyanocobalamin (Vitamin B12) 500 Mcg Tablet 500 MCG PO DAILY (Reported) Metformin HCl (Metformin HCl ER) 1,000 Mg [id number] 1,000 MG PO DAILY (Reported ) Triamterene/HCTZ 50-25 mg (Triamterene/HCTZ 50-25 mg) 1 Each Capsule 1 CAPSULE PO DAILY (Reported) Melba Polanco DO Oct 23, 2016 21:32
== END 2016-10-21 01:55 | disposition expired | DRG 189 ==
LOC: SED 06:49 → MPC 11:00 → PCC 10-13 10:37 → OSC 10-17 04:15
PROVIDERS: ADMIT Neuromusculoskeletal Medicine & OMM; ATTEND Neuromusculoskeletal Medicine & OMM
PROC: 4A033R1 Measurement of Arterial Saturation, Peripheral, Percutaneous Approach (ICD-10-PCS; 2016-10-13)
PROC: 30233S1 Transfusion of Nonautologous Globulin into Peripheral Vein, Percutaneous Approach (ICD-10-PCS; 2016-10-13)
PROC: 5A09357 Assistance with Respiratory Ventilation, Less than 24 Consecutive Hours, Continuous Positive Airway Pressure (ICD-10-PCS; principal; 2016-10-14)
DX: J96.01 Acute respiratory failure with hypoxia (principal); G70.01 Myasthenia gravis with (acute) exacerbation; E11.9 Type 2 diabetes mellitus without complications; I10 Essential (primary) hypertension; Z51.5 Encounter for palliative care; R79.89 Other specified abnormal findings of blood chemistry; Z66 Do not resuscitate; Z85.3 Personal history of malignant neoplasm of breast; Z85.038 Personal history of other malignant neoplasm of large intestine; Z91.041 Radiographic dye allergy status; Z79.84 Long term (current) use of oral hypoglycemic drugs; Z79.82 Long term (current) use of aspirin